=== PATIENT | female | born 1970 | race Caucasian/White ===

== ENCOUNTER 2018-05-27 17:40 | Emergency (ER) | payer BC ==
--- NOTE | 2018-05-27 17:52 | ED ---
Abdominal Pain HPI - General Chief Complaint: Abdominal Pain Stated Complaint: vomiting Time Seen by Provider: 05/27/18 17:51 Source: patient Mode of arrival: ambulatory Limitations: no limitations - History of Present Illness Initial Comments: 48yo female presenting today for cc of vomiting. Pt states that she had lynne lettuce Thursday as well as her daughter. Later that evening her daughter began experiencing vomiting and diarrhea. Pt states the following morning she began vomiting and has had multiple episodes daily since. Pt also admits to LUQ pain. Pt denies any alleviating factors, Pt denies any radiation of the pain Pt states she has not been able to tolerate very much PO intake because it "comes right back up". Pt denies hemetemesis, melena, hematachezia. In addition pt admits to decreased urine in comparison with her usual amount. Remainder of ROS (-), pt denies fever, chills, chest pain, dyspnea, dyspnea upon exertion, LE edema, back pain, flank pain, hematuria, dysuria, urgrency, frequency or vaginal discharge. Upon arrival pt appear well, no signs of acute distress. VS within normal limits. - Related Data Home Medications Medication Instructions Recorded Confirmed Ascorbic Acid [Vitamin C] 1,000 mg PO DAILY 05/27/18 05/28/18 Calcium Carbonate [Calcium] 600 mg PO DAILY 05/27/18 05/28/18 Ibuprofen [Motrin Ib] 400 mg PO Q6H PRN 05/27/18 05/28/18 Multivitamin,Therapeutic [Thera] 1 tab PO DAILY 05/27/18 05/28/18 Tumeric (Unknown) 1 tab PO DAILY 05/27/18 05/28/18 Previous Rx's Medication Instructions Recorded Ondansetron Odt [Zofran Odt] 4 mg PO Q8HR PRN 5 Days #15 tab 05/27/18 Allergies Allergy/AdvReac Type Severity Reaction Status Date / Time [place] And Derivatives Allergy Unknown Verified 05/28/18 10:43 [[place]] codeine Allergy Rapid Verified 05/28/18 10:43 Heart Rate Review of Systems ROS Statement: Those systems with pertinent positive or pertinent negative responses have been documented in the HPI. ROS Other: All systems not noted in ROS Statement are negative. Past Medical History Past Medical History: No Reported History History of Any Multi-Drug Resistant Organisms: None Reported Past Surgical History: Cholecystectomy Additional Past Surgical History / Comment(s): dnc Past Psychological History: No Psychological Hx Reported Smoking Status: Never smoker Past Alcohol Use History: Occasional Past Drug Use History: None Reported General Exam - General Exam Comments Initial Comments: General: The patient is awake and alert, in no distress, and does not appear acutely ill. Eye: Pupils are equal, round and reactive to light, extra-ocular movements are intact. No nystagmus. There is normal conjunctiva bilaterally. No signs of icterus. Ears, nose, mouth and throat: There are moist mucous membranes and no oral lesions. Neck: The neck is supple, there is no tenderness or JVD. Cardiovascular: There is a regular rate and rhythm. No murmur, rub or gallop is appreciated. Respiratory: Lungs are clear to auscultation, respirations are non-labored, breath sounds are equal. No wheezes, stridor, rales, or rhonchi. Gastrointestinal: No noted diaphoresis, jaundice, pallor, protecting postures or squirming. Symmetrical pigmentation of abdomen without signs of inflammation.. Umbilicus mildline, inverted without swelling. No dilated veins. Abdomen contour obese, no noted abdominal distention. No visible masses. No peristalsis, aortic pulsations, or ventral hernia. Bowel sounds audible in all 4 quadrants, unremarkable. Mild tenderness to light or deep palpation of the LUQ. Liver edge , not palpable. Spleen edge, right and left kidney not palpable. Superior bladder margin non-tender. Special Testing: Negative [place], [place], McBurney, Geovani. Iliopsoas. Negative Heel Jar test. No CVA tenderness. Digital rectal exam deferred. Negative heredia turners or cullens sign Musculoskeletal: Normal ROM, no tenderness. Strength 5/5. Sensation intact. Pulses equal bilaterally 2+. Neurological: A&O x 3. CN II-XII intact, There are no obvious motor or sensory deficits. Coordination appears grossly intact. Speech is normal. Skin: Skin is warm and dry and no rashes or lesions are noted. Psychiatric: Cooperative, appropriate mood & affect, normal judgment. Limitations: no limitations Course Vital Signs 05/27/18 05/27/18 05/27/18 17:42 19:57 20:34 Temperature 98.5 F 98.4 F Pulse Rate 70 65 Respiratory 18 17 Rate Blood Pressure 132/72 136/60 O2 Sat by Pulse 99 99 Oximetry Medical Decision Making - Medical Decision Making Well appearing 48yo female. VS within normal limits. (+) sick contacts. Laboratory findings revealed mildly elevated WBC. Appears mildly dehydrated with heme concentration and elevated BUN. Pt given IV fluids. Pt given zofran for nausea. No episdoes of vomiting during stay. Given complaints of upper abdominal pain, EKG and cardiac enzymes obtained, (-). Pt appears well, KUB (-) . Pt states she has has marked improvement of symptoms with zofran and fluids. Pt states main concern was dehydration. At this time given improvment of symptoms pt is stable for discharge with primary care f/u in net 24- 48 hours. Pt is agreeable with plan and discharge. Case discussed with Dr. King who agreed with impression and plan. Pt discharged in stable condition after discussing all return parameters at length and prescribing zofran ODT PRN as needed for nausea. Pt dneies questions upon discharge. Pt appeared well. - Lab Data Result diagrams: 05/27/18 18:05 05/27/18 18:05 Lab Results 05/27/18 05/27/18 05/27/18 Range/Units 18:05 18:05 18:05 WBC 14.1 H (3.8-10.6) k/uL RBC 5.31 (3.80-5.40) m/uL Hgb 15.5 (11.4-16.0) gm/dL Hct 46.3 H (34.0-46.0) % MCV 87.2 (80.0-100.0) fL MCH 29.3 (25.0-35.0) pg MCHC 33.5 (31.0-37.0) g/dL RDW 12.4 (11.5-15.5) % Plt Count 334 (150-450) k/uL Neutrophils % 79 % Lymphocytes % 16 % Monocytes % 4 % Eosinophils % 0 % Basophils % 0 % Neutrophils # 11.1 H (1.3-7.7) k/uL Lymphocytes # 2.3 (1.0-4.8) k/uL Monocytes # 0.5 (0-1.0) k/uL Eosinophils # 0.1 (0-0.7) k/uL Basophils # 0.0 (0-0.2) k/uL Sodium 140 (137-145) mmol/L Potassium 4.0 (3.5-5.1) mmol/L Chloride 108 H (98-107) mmol/L Carbon Dioxide 20 L (22-30) mmol/L Anion Gap 12 mmol/L BUN 20 H (7-17) mg/dL Creatinine 0.55 (0.52-1.04) mg/dL Est GFR (CKD-EPI)AfAm >90 (>60 ml/min/1.73 sqM) Est GFR (CKD-EPI)NonAf >90 (>60 ml/min/1.73 sqM) Glucose 121 H (74-99) mg/dL Calcium 9.9 (8.4-10.2) mg/dL Total Bilirubin 1.5 H (0.2-1.3) mg/dL AST 20 (14-36) U/L ALT 25 (9-52) U/L Alkaline Phosphatase 79 (38-126) U/L Total Creatine Kinase 47 (30-135) U/L CK-MB (CK-2) 0.8 (0.0-2.4) ng/mL CK-MB (CK-2) Rel Index 1.7 Troponin I <0.012 (0.000-0.034) ng/mL Total Protein 8.0 (6.3-8.2) g/dL Albumin 4.6 (3.5-5.0) g/dL Amylase 78 (30-110) U/L Lipase 110 (23-300) U/L - EKG Data -: EKG Interpreted by Me EKG Comments: A 12-lead EKG was performed and shows the following: Rate is 66, and rhythm is normal sinus. There are normal QRS complexes and normal R-wave progression. ST segments have no elevation or depression, and OR segments appear normal. No changes concerning for ACS. Disposition Clinical Impression: Acute vomiting, Abdominal pain Disposition: HOME SELF-CARE Condition: Good Instructions: Acute Nausea and Vomiting (ED), Abdominal Pain (ED) Additional Instructions: Please use medication as discussed. Please follow-up with family doctor in the next 2 days. Please return to emergency room if the symptoms increase or worsen or for any other concerns,as discussed including fever, bloody stool, worsening or persistent pain/symptoms. Prescriptions: Ondansetron Odt [Zofran Odt] 4 mg PO Q8HR PRN 5 Days #15 tab PRN Reason: Nausea And Vomiting Is patient prescribed a controlled substance at d/c from ED?: No Referrals: None,Stated [REFERRING] - 1-2 days [facility] [NON-STAFF] - 1-2 days Time of Disposition: 20:14
[2018-05-27 18:25] LABS: Basophils % (A) 0 %; Eosinophils # (A) 0.1 k/uL (0-0.7); Eosinophils % (A) 0 %; HCT 46.3 % (34.0-46.0); HGB 15.5 gm/dL (11.4-16.0); Lymphocytes # (A) 2.3 k/uL (1.0-4.8); Lymphocytes % (A) 16 %; MCH 29.3 pg (25.0-35.0); MCHC 33.5 g/dL (31.0-37.0); MCV 87.2 fL (80.0-100.0); Monocytes # (A) 0.5 k/uL (0-1.0); Monocytes % (A) 4 %; Neutrophils # (A) 11.1 k/uL (1.3-7.7); Neutrophils % (A) 79 %; Platelet Count 334 k/uL (150-450); RBC 5.31 m/uL (3.80-5.40); RDW 12.4 % (11.5-15.5); WBC 14.1 k/uL (3.8-10.6)
[2018-05-27 18:33] LABS: ALT 25 U/L (9-52); AST 20 U/L (14-36); Albumin 4.6 g/dL (3.5-5.0); Alkaline Phosphatase 79 U/L (38-126); Amylase 78 U/L (30-110); Anion Gap 12 mmol/L; Blood Urea Nitrogen 20 mg/dL (7-17); Calcium 9.9 mg/dL (8.4-10.2); Carbon Dioxide 20 mmol/L (22-30); Chloride 108 mmol/L (98-107); Glucose 121 mg/dL (74-99); Lipase 110 U/L (23-300); Sodium 140 mmol/L (137-145); Total Bilirubin 1.5 mg/dL (0.2-1.3)
--- NOTE | 2018-05-27 18:41 | XR ---
EXAMINATION TYPE: XR KUB DATE OF EXAM: 05/27/2018 COMPARISON: NONE HISTORY: Abdominal pain TECHNIQUE: 2 views upright FINDINGS: There is no sign of intestinal obstruction or pneumoperitoneum. There are clips from cholec ystectomy. There are a few fluid levels in the upper abdomen. Lung bases are clear. There are no path ologic calcifications over the kidneys. Fecal pattern is normal. IMPRESSION: There are a few small bowel air-fluid levels that could relate to minimal ileus. No free air.
[2018-05-27 18:45] LABS: Creatine Kinase 47 U/L (30-135)
[2018-05-27 18:56] LABS: Creatine Kinase MB 0.8 ng/mL (0.0-2.4); Troponin I <0.012 ng/mL (0.000-0.034)
[2018-05-27] MEDS ORDERED: SODIUM CHLORIDE 0.9% 1,000 ML IV ONE (19:01)
[2018-05-27] MEDS ORDERED: ONDANSETRON 4 MG/2 ML VIAL IVP STA (19:01)
[2018-05-27] MEDS ORDERED: KETOROLAC 30 MG/ML 1 ML VIAL IVP STA (19:21)
[2018-05-27 19:59] VITALS: BP 136/60; PULSE 65; RESP 17
[2018-05-27] MEDS ORDERED: ONDANSETRON 4 MG ODT STARTER PACK 2 TAB BTL PO STA (20:16)
[2018-05-27 20:35] VITALS: TEMP 98.4
== END 2018-05-27 20:36 | disposition home or self-care (01) ==
LOC: EC 17:40
DX: R10.12 Left upper quadrant pain (principal); R11.10 Vomiting, unspecified; Z79.899 Other long term (current) drug therapy; Z88.5 Allergy status to narcotic agent; Z91.018 Allergy to other foods; Z90.49 Acquired absence of other specified parts of digestive tract
CPT/HCPCS: 36415; 93005; 80053; 82150; 82550; 82553; 83690; 84484; 85025; 74018; 99284; 96374; 96375; 96361; J2405; J1885; S0119

== ENCOUNTER 2018-05-28 10:03 | Observation (INO) | payer BC ==
[2018-05-28] MEDS ORDERED: SODIUM CHLORIDE 0.9% 1,000 ML IV STA (10:34)
[2018-05-28] MEDS ORDERED: PANTOPRAZOLE 40 MG/10 ML VIAL IVP ONE (10:35)
--- NOTE | 2018-05-28 10:40 | ED ---
General Adult HPI - General Chief complaint: GI Bleed Stated complaint: VOMITING BLOOD Source: patient Mode of arrival: ambulatory Limitations: no limitations - History of Present Illness Initial comments: Dictation was produced using [employer] dictation software. please excuse any grammatical, word or spelling errors. Chief Complaint: 28-year-old female with past medical history of obesity and recent 90 pound weight loss presents with hematemesis. History of Present Illness: Patient is a 48-year-old female presents with chief complaint of hematemesis. She was seen here yesterday. Patient's symptoms started 4 days ago with nausea and vomiting. Patient also complains of epigastric/left upper quadrant abdominal pain. Patient is a frequent caffeine user. She does not use tobacco products. She drinks occasionally. Patient states that she was seen yesterday and was discharged with Zofran. She states that this morning she had 3 episodes of dark brown emesis. Patient states she vomited approximately the size of one can 43 times and with each emesis. Emesis was getting darker in appearance. Patient denies any history of upper GI bleed. She states she has not had a bowel movement in several days. The ROS documented in this emergency department record has been reviewed and confirmed by me. Those systems with pertinent positive or negative responses have been documented in the HPI. All other systems are other negative and/or noncontributory. - Related Data Home Medications Medication Instructions Recorded Confirmed Ascorbic Acid [Vitamin C] 1,000 mg PO DAILY 05/27/18 05/28/18 Calcium Carbonate [Calcium] 600 mg PO DAILY 05/27/18 05/28/18 Ibuprofen [Motrin Ib] 400 mg PO Q6H PRN 05/27/18 05/28/18 Multivitamin,Therapeutic [Thera] 1 tab PO DAILY 05/27/18 05/28/18 Tumeric (Unknown) 1 tab PO DAILY 05/27/18 05/28/18 Previous Rx's Medication Instructions Recorded Ondansetron Odt [Zofran Odt] 4 mg PO Q8HR PRN 5 Days #15 tab 05/27/18 Allergies Allergy/AdvReac Type Severity Reaction Status Date / Time [place] And Derivatives Allergy Unknown Verified 05/28/18 10:43 [[place]] codeine Allergy Rapid Verified 05/28/18 10:43 Heart Rate Review of Systems ROS Statement: Those systems with pertinent positive or pertinent negative responses have been documented in the HPI. ROS Other: All systems not noted in ROS Statement are negative. Past Medical History Past Medical History: No Reported History History of Any Multi-Drug Resistant Organisms: None Reported Past Surgical History: Cholecystectomy Additional Past Surgical History / Comment(s): dnc Past Psychological History: No Psychological Hx Reported Smoking Status: Never smoker Past Alcohol Use History: Occasional Past Drug Use History: None Reported General Exam - General Exam Comments Initial Comments: PHYSICAL EXAM: General Impression: Alert and oriented x3, not in acute distress HEENT: Normocephalic atraumatic, extra-ocular movements intact, pupils equal and reactive to light bilaterally, mucous membranes moist. Cardiovascular: Heart regular rate and rhythm, S1&S2 audible, no murmurs, rubs or gallops Chest: Lungs clear to auscultation bilaterally, no rhonchi, no wheeze, no rales Abdomen: Bowel sounds present, abdomen soft, non-tender, non-distended, no organomegaly Musculoskeletal: Pulses present and equal in all extremities, no peripheral edema Motor: Power 5/5 bilaterally, no focal deficits noted Neurological: CN II-XII grossly intact, no focal motor or sensory deficits noted Skin: Intact with no visualized rashes Psych: Normal affect and mood Limitations: no limitations Course Vital Signs 05/28/18 10:07 Temperature 98 F Pulse Rate 67 Respiratory 18 Rate Blood Pressure 153/96 O2 Sat by Pulse 100 Oximetry Medical Decision Making - Medical Decision Making ED course: 48-year-old female presents with chief complaint of dark brown emesis. Vital signs upon arrival are within acceptable limits. Clinical presentation consistent with upper GI bleed. There is strong suspicion of bleeding peptic ulcer versus gastritis. Patient is tolerating by mouth. Patient started on fluids. Chart and labs were reviewed from yesterday. Patient given Protonix. She is ordered scheduled Protonix and scheduled CBCs. We will plan to have patient admitted to the hospital for GI consultation and likely upper endoscopy. EKG interpretation: Ventricular rate 62, normal sinus rhythm, CT interval 120, QRS 84, QTC 434. No CT prolongation, no QTC prolongation, no ST or T-wave changes noted. . Overall, this EKG is unremarkable - Lab Data Result diagrams: 05/28/18 10:50 Lab Results 05/28/18 05/28/18 05/28/18 Range/Units 10:50 10:50 10:50 WBC 13.4 H (3.8-10.6) k/uL RBC 4.85 (3.80-5.40) m/uL Hgb 13.9 (11.4-16.0) gm/dL Hct 42.0 (34.0-46.0) % MCV 86.5 (80.0-100.0) fL MCH 28.7 (25.0-35.0) pg MCHC 33.2 (31.0-37.0) g/dL RDW 12.5 (11.5-15.5) % Plt Count 326 (150-450) k/uL PT 11.6 (9.0-12.0) sec INR 1.1 (<1.2) Magnesium 1.7 (1.6-2.3) mg/dL Blood Type Blood Type Confirm Blood Type Recheck Antibody Screen Spec Expiration Date 05/28/18 05/28/18 Range/Units 10:50 11:31 WBC (3.8-10.6) k/uL RBC (3.80-5.40) m/uL Hgb (11.4-16.0) gm/dL Hct (34.0-46.0) % MCV (80.0-100.0) fL MCH (25.0-35.0) pg MCHC (31.0-37.0) g/dL RDW (11.5-15.5) % Plt Count (150-450) k/uL PT (9.0-12.0) sec INR (<1.2) Magnesium (1.6-2.3) mg/dL Blood Type O Positive Blood Type Confirm O Positive Blood Type Recheck CABO Indicated Antibody Screen NEGATIVE Spec Expiration Date 05/31/2018 - 2334 Disposition Clinical Impression: Hematochezia Disposition: ADMITTED IP TO THIS HOSP Condition: Fair Is patient prescribed a controlled substance at d/c from ED?: No Referrals: Kerrie Anand MD [Primary Care Provider] - 1-2 days Decision Time: 12:51
[2018-05-28 11:09] LABS: HGB 13.9 gm/dL (11.4-16.0); MCH 28.7 pg (25.0-35.0); MCHC 33.2 g/dL (31.0-37.0); MCV 86.5 fL (80.0-100.0); Mean Platelet Volume 7.6; Platelet Count 326 k/uL (150-450); RBC 4.85 m/uL (3.80-5.40); RDW 12.5 % (11.5-15.5); WBC 13.4 k/uL (3.8-10.6)
--- NOTE | 2018-05-28 11:22 | XR ---
EXAMINATION TYPE: XR chest 1V DATE OF EXAM: 05/28/2018 CLINICAL HISTORY: Pain TECHNIQUE: Single frontal view of the chest is obtained. COMPARISON: None FINDINGS: There is no focal air space opacity, pleural effusion, or pneumothorax seen. The cardiac silhouette size is within normal limits. The osseous structures are intact. IMPRESSION: No acute process.
[2018-05-28 11:46] LABS: INR 1.1 (<1.2); Prothrombin Time 11.6 sec (9.0-12.0)
[2018-05-28] MEDS ORDERED: NALOXONE 0.4 MG/ML 1 ML VIAL IV PRN (12:48)
[2018-05-28] MEDS ORDERED: ACETAMINOPHEN TAB 325 MG TAB PO PRN (14:29)
[2018-05-28] MEDS: ONDANSETRON 4 MG/2 ML VIAL IVP PRN (15:41)
[2018-05-28] MEDS ORDERED: KETOROLAC 30 MG/ML 1 ML VIAL IVP SCH (18:00)
[2018-05-28] MEDS: PANTOPRAZOLE 40 MG/10 ML VIAL IVP SCH (22:01)
[2018-05-28] MEDS: SODIUM CHLORIDE 0.9% 1,000 ML IV SCH ×2 (22:01→23:40)
[2018-05-28] MEDS: KETOROLAC 30 MG/ML 1 ML VIAL IVP PRN (23:43)
[2018-05-29] MEDS: ONDANSETRON 4 MG/2 ML VIAL IVP PRN ×4 (06:47→23:56)
[2018-05-29] MEDS: KETOROLAC 30 MG/ML 1 ML VIAL IVP PRN ×3 (07:55→19:55)
[2018-05-29] MEDS: PANTOPRAZOLE 40 MG/10 ML VIAL IVP SCH ×2 (07:56→21:13)
[2018-05-29 08:59] VITALS: BMI 43.9
[2018-05-29] MEDS: SODIUM CHLORIDE 0.9% 1,000 ML IV SCH ×2 (09:54→20:48)
--- NOTE | 2018-05-29 12:50 | PN ---
PROGRESS NOTE DATE OF SERVICE: 05/29/2018 CHIEF COMPLAINT: Epigastric pain and hematemesis. HISTORY OF PRESENT ILLNESS: This lady is feeling a little bit better, but she is still having the epigastric pain. She is not vomiting. She is going to be scoped tomorrow. PHYSICAL EXAM: She is slightly tender over the epigastrium. Color is good. Chest is clear. Cardiac exam is normal. IMPRESSION: 1. Gastritis. 2. Hematemesis. PLAN: A scope tomorrow. MMODL / IJN: [id number] /
--- NOTE | 2018-05-29 13:33 | HP ---
HISTORY AND PHYSICAL CHIEF COMPLAINT: Abdominal pain and shortness of breath. HISTORY OF PRESENT ILLNESS: This is the first admission for this 48-year-old white female. She apparently ate a salad somewhere and shortly thereafter began to have epigastric pain, nausea and vomiting. This lasted about 4 days. She did not have diarrhea. The pain was quite significant and after a while she started throwing up coffee-grounds emesis. There was felt that this could represent upper GI bleeding. She is healthy otherwise. She has never had ulcer, gastritis, etc. She has had no fever, chills, diarrhea, melena, hematochezia, etc. The only medications she is on, she is on vitamin C, calcium, Motrin 400 q.i.d. p.r.n. In the emergency room, laboratory studies unremarkable. White count 75669, hemoglobin 13.9. REVIEW OF SYSTEMS: She has had no neurologic problems, history of lung disease, cough, hemoptysis, shortness of breath, heart disease, murmurs, rheumatic fever, hypertension, orthopnea, PND, history of GI disease, renal failure, hematuria, frequency, urgency, vaginal discharge or bleeding, arthralgias, diabetes, etc. Past medical history, family history, personal and social histories are unremarkable otherwise. ALLERGIES: SHE IS ALLERGIC TO CODEINE. PAST SURGICAL HISTORY: Surgically she has had 2 D and C's, and cholecystectomy. She does not take any medicines other than those already mentioned. PHYSICAL EXAMINATION: VITAL SIGNS: Temperature 98.5, pulse 64, blood pressure 130/76. GENERAL: She appeared to be slightly overweight in no acute distress. SKIN: Color is normal. Skin is warm, dry. Lymph nodes not enlarged. HEENT: Head, ears, eyes, nose, mouth, and throat were normal. Neck veins not distended. Thyroid is not enlarged. CHEST: Chest is clear. CARDIOVASCULAR: Cardiac exam demonstrated normal sinus rhythm. No murmurs or extra sounds. She is a little bit tender up over the epigastrium, but there are no masses or visceromegaly. Bowel sounds present. EXTREMITIES: Normal. NEUROLOGICAL: Neurologically she is intact. IMPRESSION: Epigastric pain with intractable nausea and vomiting hematemesis. PLAN: 1. Bed rest. 2. IV fluids. 3. Proton pump inhibitor. 4. Consult with Gastroenterology. MMODL / IJN: [id number] /
--- NOTE | 2018-05-29 13:47 | CONS ---
CONSULTATION DATE OF DICTATION: May 29, 2018. REQUESTING PHYSICIAN: Dr. Peralta. REASON FOR CONSULTATION: Abdominal pain, nausea, vomiting, and coffee-grounds emesis. HISTORY OF PRESENT ILLNESS: The patient is a 48-year-old pleasant white female, who was admitted to the hospital with acute onset of epigastric pain associated with nausea, vomiting for the last 4 days duration. She ate a salad on Thursday and after she went home she started having severe epigastric discomfort associated with nausea, vomiting. She threw up at least 5 times, came in the emergency room. She was given Zofran and was discharged home. The next morning she continued to have persistent abdominal pain with intermittent nausea, vomiting, and yesterday morning had 3 episodes of coffee-grounds emesis, became concerned, came to the emergency room and subsequently admitted to the hospital for further evaluation. Since being in the hospital, did not have any further episodes of bleeding. She still has epigastric discomfort, currently n.p.o. She never had these symptoms in the past. No history of peptic ulcer disease. PAST MEDICAL HISTORY: Unremarkable. MEDICATIONS AT HOME: Motrin p.r.n., multivitamin, vitamin C, and Zofran. ALLERGIES: CODEINE. SOCIAL HISTORY: No smoking. No alcohol use. PAST SURGICAL HISTORY: Gallbladder surgery. REVIEW OF SYSTEMS: CARDIOPULMONARY: No chest pain, shortness of breath. GENITOURINARY: No dysuria or hematuria. MUSCULOSKELETAL: Unremarkable. SKIN unremarkable. ENDOCRINE unremarkable. PSYCHIATRIC unremarkable. NEUROLOGY unremarkable. ENT/VISION unremarkable. CONSTITUTIONAL: No recent weight loss. No fever, chills, night sweats. PHYSICAL EXAMINATION: She appears comfortable in no apparent distress. Vital signs are stable. Blood pressure 130/76, pulse rate 64, temperature 97. HEENT examination unremarkable. Conjunctivae pink. Sclerae anicteric. Oral cavity no lesions. NECK: No JVD or lymph node enlargement. Chest was clear to auscultation. HEART: Regular rate and rhythm. ABDOMEN: Soft. There is mild tenderness in the epigastric area. Bowel sounds are positive. EXTREMITIES: No pedal edema. SKIN: No rashes. NEUROLOGIC: Alert and oriented x3. No focal deficits. LABORATORY DATA: The following are the labs done at the time of admission to the hospital: CBC: Hemoglobin was 13.9, WBC 13.4, and platelets are normal. PT/INR is within normal limits. IMPRESSION: This is a lady who presented to the hospital with severe epigastric pain for the last 5 days duration associated with nausea, vomiting, who came into the emergency room, at the onset of symptoms was given Zofran and discharged home. She continued to have persistent symptoms with coffee-ground emesis that started yesterday. Hemoglobin however remained stable at 13.9 g/dL. Most likely we are dealing with a Laureen-Sawyer tear or antral erosive gastritis. Doubt peptic ulcer disease. RECOMMENDATIONS: 1. Continue with IV PPI. 2. Start her on a clear liquid diet and advance as tolerated. 3. Proceed with an upper endoscopy tomorrow. Discussed with the patient, risks, benefits and complications and she is agreeable to it. Thank you for this consultation. MMJENNIFERL / IJN: [id number] /
[2018-05-30] MEDS: KETOROLAC 30 MG/ML 1 ML VIAL IVP PRN ×4 (02:02→18:11)
[2018-05-30] MEDS: SODIUM CHLORIDE 0.9% 1,000 ML IV SCH ×3 (05:02→18:06)
[2018-05-30] MEDS: PANTOPRAZOLE 40 MG/10 ML VIAL IVP SCH (07:29)
[2018-05-30] MEDS: ONDANSETRON 4 MG/2 ML VIAL IVP PRN ×3 (07:30→18:10)
[2018-05-30] MEDS ORDERED: PROPOFOL 10 MG/ML 20 ML VIAL IV ONE (08:28)
[2018-05-30] MEDS ORDERED: LIDOCAINE 1% INJ 10MG/ML (20 ML MDV) ONE (08:28)
[2018-05-30] MEDS ORDERED: IV FLUID CONTINUATION 100 ML IV ONE (08:30)
--- NOTE | 2018-05-30 08:39 | P.PCN ---
Date of Procedure: 05/30/18 Procedure(s) Performed: BRIEF HISTORY: Patient is a 48-year-old, pleasant, white female, admitted to hospital with severe epigastric pain is with nausea vomiting and coffee-ground emesis for the last 5 days duration. Initially it was bilious emesis but subsequently found to coffee-ground a day prior to admission to hospital. She is on IV Protonix and Zofran. Remain symptomatic and hence he scheduled for an upper endoscopy to evaluate further. PROCEDURE PERFORMED: Esophagogastroduodenoscopy with biopsy. PREOPERATIVE DIAGNOSIS: Epigastric pain/coffee-ground emesis. IV sedation per anesthesia. PROCEDURE: After informed consent was obtained, the patient was brought into the endoscopy unit. IV sedation was administered by Anesthesia under continuous monitoring. Initially the Olympus GIF-140 video endoscope was inserted into the mouth. Esophagus intubated without any difficulty. It was gradually advanced into the stomach and duodenum and carefully examined. The bulb and the second part of the duodenum appeared normal. The scope at this time was withdrawn to the stomach, adequately insufflated with air, and upon careful examination, mucosa of the antrum, body, had diffuse gastritis and biopsies were done from this area. The cardia and the fundus appeared normal. The scope was then withdrawn into the esophagus. The GE junction was located at 39 cm from the incisors. The esophagus appeared normal. There were no erosions or ulcerations seen and the patient tolerated the procedure well. IMPRESSION: 1. Mild diffuse gastritis but no evidence of peptic ulcer disease. 2. Small hiatal hernia. RECOMMENDATIONS: The findings of this examination were discussed with the patient. She was advised to follow with the biopsy results. In the meantime he 'll continue with IV Protonix as well as antiemetics and advance diet as tolerated.
--- NOTE | 2018-05-30 13:27 | PN ---
PROGRESS NOTE CHIEF COMPLAINT: Hematemesis. HISTORY OF PRESENT ILLNESS: This lady is doing well. She was scoped this morning and she was found to have a gastritis and a hiatal hernia with no ulcer. PHYSICAL EXAM: Chest is clear. Cardiac exam is normal. Abdomen is soft, nontender. IMPRESSION: 1. Intractable nausea and vomiting. 2. Gastritis and hiatal hernia. PLAN: She will probably stay the rest of the day and go home tomorrow. MMODL / IJN: [id number] /
[2018-05-30] MEDS ORDERED: MAGNESIUM CITRATE 296 ML BOTTLE PO ONE (14:36)
[2018-05-30] MEDS: PANTOPRAZOLE 40 MG TABLET PO SCH (17:20)
[2018-05-31] MEDS: PANTOPRAZOLE 40 MG TABLET PO SCH ×2 (07:51→17:33)
[2018-05-31] MEDS: KETOROLAC 30 MG/ML 1 ML VIAL IVP PRN ×2 (07:51)
[2018-05-31] MEDS: ONDANSETRON 4 MG/2 ML VIAL IVP PRN ×2 (07:51)
[2018-05-31] MEDS ORDERED: BISACODYL 10 MG SUPP RECTAL PRN (10:07)
[2018-05-31] MEDS ORDERED: NA PHOS,M-B/NA PHOS,DI-BA 133 ML ENEMA RECTAL ONE (10:15)
--- NOTE | 2018-05-31 11:52 | PN ---
PROGRESS NOTE DATE OF SERVICE: May 31, 2018 Patient is a 48-year-old pleasant white female admitted to the hospital with severe onset of nausea, vomiting, and coffee-grounds emesis of 2 days duration. She underwent an upper endoscopy yesterday that showed a small hiatal hernia and mild gastritis. She has been on Protonix 40 mg twice daily as well as Zofran. Yesterday after endoscopy, she had some regular diet and she had 2 episodes of emesis. She is complaining of abdominal distention and severe constipation. She had no bowel movements for the last 5 days. No fever, chills, or night sweats. This morning, she had regular diet, tolerated well. PHYSICAL EXAMINATION: Appears comfortable no apparent distress. VITAL SIGNS: Stable. Blood pressure 156- 84, pulse rate 66, temperature 98.8. HEENT examination unremarkable. Conjunctivae pink. Sclerae anicteric. Oral cavity no lesions. Neck no jugular venous distention or lymph node enlargement. Chest was clear to auscultation. HEART: Regular rate and rhythm. ABDOMEN: Soft. There was slight abdominal distention noted. EXTREMITIES: No pedal edema. Skin no rashes. NEUROLOGIC: Alert and oriented x3. No focal deficits. LABS: No labs available from today. IMPRESSION: 1. Acute onset of nausea, vomiting, and coffee-grounds emesis, status post EGD yesterday showed mild gastritis and small hiatal hernia. 2. Abdominal distention/constipation. RECOMMENDATIONS: 1. Advance diet as tolerated. 2. We will give her a Fleet's enema and Dulcolax suppository if no results to alleviate the constipation. 3. If her symptoms improve, she can be discharged home today or tomorrow. Thank you for this consultation. MMODL / IJN: [id number] /
[2018-05-31 15:46] VITALS: BP 148/82; PULSE 77; RESP 18; TEMP 99.1
--- NOTE | 2018-06-01 08:06 | DS ---
DISCHARGE SUMMARY CHIEF COMPLAINT: Nausea, vomiting, hematemesis. HISTORY OF PRESENT ILLNESS AND PHYSICAL EXAM: The details of this lady's history and physical can be found in the initial workup. LABORATORY STUDIES: While she was in a hospital she had laboratory studies, details which can be found laboratory section of her chart. COURSE IN HOSPITAL: After admission she was placed on bedrest, started on intravenous fluids and seen by Gastroenterology. She was taken to the operating room where she was found to have gastritis, hiatal hernia, esophagitis, but no definite ulcer. Postoperatively, she had some mild discomfort, but no further hematemesis. PHYSICAL EXAMINATION: Chest is clear. There are no further difficulty. She will go home on light activity and a bland soft diet and be seen in the office in 4 or 5 days. FINAL DIAGNOSES: 1. Upper gastrointestinal hemorrhage. 2. Intractable nausea and vomiting. 3. Gastritis. 4. Hiatal hernia. 5. Esophagitis. 6. Constipation. OPERATIONS: Endoscopy. CONSULTATIONS: Gastroenterology. She is improved. MMODL / IJN: [id number] /
== END 2018-05-31 18:22 | disposition home or self-care (01) ==
LOC: EC 10:03 → 4SSUR 12:48
PROVIDERS: ADMIT Family Medicine; ATTEND Family Medicine
DX: K29.51 Unspecified chronic gastritis with bleeding (principal); K44.9 Diaphragmatic hernia without obstruction or gangrene; K20.9 Esophagitis, unspecified; K59.00 Constipation, unspecified; Z88.5 Allergy status to narcotic agent; Z90.49 Acquired absence of other specified parts of digestive tract
CPT/HCPCS: 96376 ×3; 96375; 96361; 96374; 99285; 36415; 93005; 81025; 86900; 86901; 88305; 83735; 85027; 85610; 86850; 88342; 71045; 43239; G0378 ×4; J2405 ×4; J2001; J1885 ×4; J2704; C9113 ×3

== ENCOUNTER 2018-06-03 00:45 | Inpatient (IN) | payer BC ==
[2018-06-03] MEDS ORDERED: SODIUM CHLORIDE 0.9% 1,000 ML IV STA ×2 (02:10→06:09)
[2018-06-03 02:38] LABS: Basophils % (A) 0 %; Eosinophils # (A) 0.1 k/uL (0-0.7); Eosinophils % (A) 1 %; HCT 42.3 % (34.0-46.0); HGB 14.3 gm/dL (11.4-16.0); Lymphocytes # (A) 1.9 k/uL (1.0-4.8); Lymphocytes % (A) 16 %; MCH 29.3 pg (25.0-35.0); MCHC 33.7 g/dL (31.0-37.0); Mean Platelet Volume 7.9; Monocytes # (A) 1.1 k/uL (0-1.0); Monocytes % (A) 10 %; Neutrophils # (A) 8.4 k/uL (1.3-7.7); Neutrophils % (A) 71 %; Platelet Count 312 k/uL (150-450); RBC 4.87 m/uL (3.80-5.40); RDW 12.2 % (11.5-15.5); WBC 11.7 k/uL (3.8-10.6)
--- NOTE | 2018-06-03 02:47 | XR ---
EXAMINATION TYPE: XR KUB DATE OF EXAM: 06/03/2018 COMPARISON: 05/27/2018 HISTORY: Abdominal pain TECHNIQUE: 2 views upright FINDINGS: There are multiple dilated air and fluid-filled loops of small bowel in the midabdomen. Thi s appears increased compared to last exam. There is no sign of free air. Lung bases are clear. There is very little large bowel gas. IMPRESSION: Dilated small bowel consistent with high-grade mechanical small bowel obstruction. This i s a significant change compared to last exam.
[2018-06-03 02:49] LABS: Albumin 3.9 g/dL (3.5-5.0); Amylase 75 U/L (30-110); Anion Gap 17 mmol/L; Blood Urea Nitrogen 18 mg/dL (7-17); Calcium 9.3 mg/dL (8.4-10.2); Carbon Dioxide 26 mmol/L (22-30); Chloride 94 mmol/L (98-107); Glucose 116 mg/dL (74-99); Lipase 305 U/L (23-300); Sodium 137 mmol/L (137-145); Total Bilirubin 1.7 mg/dL (0.2-1.3); Total Protein 6.9 g/dL (6.3-8.2)
[2018-06-03] MEDS ORDERED: ONDANSETRON 4 MG/2 ML VIAL IVP STA (02:49)
[2018-06-03 03:09] LABS: Potassium 3.7 mmol/L (3.5-5.1)
[2018-06-03 03:10] LABS: ALT 52 U/L (9-52); AST 37 U/L (14-36); Alkaline Phosphatase 88 U/L (38-126)
[2018-06-03] MEDS ORDERED: MAG HYDROX/AL HYDROX/SIMETH 30 ML, HYOSCYAMINE ELIXIR 10 ML, CIMETIDINE HCL 300 MG, LID... PO STA ×4 (03:14)
--- NOTE | 2018-06-03 03:16 | ED ---
Nausea/Vomiting/Diarrhea HPI - General Chief complaint: Nausea/Vomiting/Diarrhea Stated complaint: vomiting, dizziness Time Seen by Provider: 06/03/18 02:57 Source: patient Mode of arrival: wheelchair Limitations: no limitations - History of Present Illness MD complaint: nausea, vomiting Onset/Timin -: days(s) Description of Vomiting: food contents, watery Associated Abdominal Pain: No Radiation: none Quality: cramping Improves with: none Worsens with: none - Related Data Home Medications Medication Instructions Recorded Confirmed Calcium Carbonate [Calcium] 600 mg PO DAILY 05/27/18 05/28/18 Multivitamin,Therapeutic [Thera] 1 tab PO DAILY 05/27/18 05/28/18 Tumeric (Unknown) 1 tab PO DAILY 05/27/18 05/28/18 Previous Rx's Medication Instructions Recorded Ondansetron Odt [Zofran ODT] 4 mg PO Q8HR PRN 5 Days #15 tab 05/27/18 Pantoprazole [Protonix] 40 mg PO AC-BID #60 tablet. 05/31/18 Allergies Allergy/AdvReac Type Severity Reaction Status Date / Time [place] And Derivatives Allergy Unknown Verified 05/28/18 10:43 [[place]] codeine Allergy Rapid Verified 05/28/18 10:43 Heart Rate Review of Systems ROS Statement: Those systems with pertinent positive or pertinent negative responses have been documented in the HPI. ROS Other: All systems not noted in ROS Statement are negative. Constitutional: Reports: weakness (Generalized). Denies: fever, chills Respiratory: Denies: cough, dyspnea Cardiovascular: Denies: chest pain, palpitations Gastrointestinal: Reports: abdominal pain, nausea, vomiting, constipation. Denies: diarrhea, melena, hematochezia Genitourinary: Denies: dysuria, hematuria Musculoskeletal: Denies: back pain Skin: Denies: rash Neurological: Denies: headache Past Medical History Past Medical History: No Reported History Additional Past Medical History / Comment(s): Migraines and joint pain, 90# intentional wt loss since August 2017. History of Any Multi-Drug Resistant Organisms: None Reported Past Surgical History: Section, Cholecystectomy Additional Past Surgical History / Comment(s): D&C Past Anesthesia/Blood Transfusion Reactions: Motion Sickness Additional Past Anesthesia/Blood Transfusion Reaction / Comment(s): Pt states she has been told she is "difficult to bring back out of it". Past Psychological History: No Psychological Hx Reported Smoking Status: Former smoker - Past Family History Father Family Medical History: Congestive Heart Failure (CHF) Additional Family Medical History / Comment(s): Father of CHF at the age of 56yrs. Mother Family Medical History: Cancer Additional Family Medical History / Comment(s): Mother of mutation cancer at the age of 40yrs. General Exam Limitations: no limitations Course Vital Signs 06/03/18 01:00 Temperature 97.8 F Pulse Rate 78 Respiratory 18 Rate Blood Pressure 136/91 O2 Sat by Pulse 97 Oximetry Medical Decision Making - Lab Data Result diagrams: 06/03/18 01:39 06/03/18 01:39 Lab Results 06/03/18 06/03/18 Range/Units 01:39 01:39 WBC 11.7 H (3.8-10.6) k/uL RBC 4.87 (3.80-5.40) m/uL Hgb 14.3 (11.4-16.0) gm/dL Hct 42.3 (34.0-46.0) % MCV 87.0 (80.0-100.0) fL MCH 29.3 (25.0-35.0) pg MCHC 33.7 (31.0-37.0) g/dL RDW 12.2 (11.5-15.5) % Plt Count 312 (150-450) k/uL Neutrophils % 71 % Lymphocytes % 16 % Monocytes % 10 % Eosinophils % 1 % Basophils % 0 % Neutrophils # 8.4 H (1.3-7.7) k/uL Lymphocytes # 1.9 (1.0-4.8) k/uL Monocytes # 1.1 H (0-1.0) k/uL Eosinophils # 0.1 (0-0.7) k/uL Basophils # 0.0 (0-0.2) k/uL Sodium 137 (137-145) mmol/L Potassium 3.7 (3.5-5.1) mmol/L Chloride 94 L (98-107) mmol/L Carbon Dioxide 26 (22-30) mmol/L Anion Gap 17 mmol/L BUN 18 H (7-17) mg/dL Creatinine 0.49 L (0.52-1.04) mg/dL Est GFR (CKD-EPI)AfAm >90 (>60 ml/min/1.73 sqM) Est GFR (CKD-EPI)NonAf >90 (>60 ml/min/1.73 sqM) Glucose 116 H (74-99) mg/dL Calcium 9.3 (8.4-10.2) mg/dL Total Bilirubin 1.7 H (0.2-1.3) mg/dL AST 37 H (14-36) U/L ALT 52 (9-52) U/L Alkaline Phosphatase 88 (38-126) U/L Total Protein 6.9 (6.3-8.2) g/dL Albumin 3.9 (3.5-5.0) g/dL Amylase 75 (30-110) U/L Lipase 305 H (23-300) U/L Disposition Clinical Impression: Abdominal pain, Small bowel obstruction Disposition: ADMITTED IP TO THIS HOSP Is patient prescribed a controlled substance at d/c from ED?: No Referrals: None,Stated [Primary Care Provider] - 1-2 days
[2018-06-03] MEDS ORDERED: MAG HYDROX/AL HYDROX/SIMETH 30 ML CUP PO PRN (06:08)
[2018-06-03] MEDS ORDERED: NALOXONE 0.4 MG/ML 1 ML VIAL IV PRN (06:08)
[2018-06-03] MEDS: ONDANSETRON 4 MG/2 ML VIAL IVP PRN ×2 (08:39→16:24)
[2018-06-03] MEDS: MORPHINE SULFATE 4 MG/ML SYRINGE IV PRN ×4 (08:40→23:22)
[2018-06-03] MEDS: PANTOPRAZOLE 40 MG TABLET PO SCH ×2 (09:12→17:51)
--- NOTE | 2018-06-03 09:32 | P.CONS ---
History of Present Illness - History of Present Illness This is a pleasant 48 years old female with past medical history of migraine. She was recently discharged from hospital for nausea/vomiting and coffee-ground emesis of 2 days' duration. She had EGD showing small helical hernias and mild gastritis. Also that time she complained from constipation and abdominal distention and she was treated with laxatives. Patient this time presents with recurrent nausea and vomiting 10-30 times per day for the last week associated with abdominal distention and periumbilical discomfort and pain. Also she complains from constipation for one week. In the emergency room her abdominal x-ray showing dilated small bowel consistent with high-grade mechanical small bowel obstruction. On admission her Vitas looks stable. Mild leukocytosis of 16.4, down to 11.7 K. Creatinine 0.4 and electrolytes within normal limits. Total bilirubin is mildly elevated at 1.7 as well as AST 37, however LT a note contrast is within normal limits. Lipase 305. In the emergency room patient of Zofran and IV fluids, she was started on pain management morphine.. I started the patient on D5 normal saline at 75 mL/h Patient states that currently she is menstruating. Review of Systems CONSTITUTIONAL: No fever, no malaise, no fatigue. HEENT: No recent visual problems or hearing problems. Denied any sore throat. CARDIOVASCULAR: No orthopnea, PND, no palpitations, no syncope. PULMONARY: No shortness of breath, no cough, no hemoptysis. GASTROINTESTINAL: No diarrhea, no nausea, no vomiting, no abdominal pain. Normoactive bowel sounds. NEUROLOGICAL: No headaches, no weakness, no numbness. HEMATOLOGICAL: Denies any bleeding or petechiae. GENITOURINARY: Denies any burning micturition, frequency, or urgency. MUSCULOSKELETAL/RHEUMATOLOGICAL: Denies any joint pain, swelling, or any muscle pain. ENDOCRINE: Denies any polyuria or polydipsia. Past Medical History Past Medical History: No Reported History Additional Past Medical History / Comment(s): Migraines and joint pain, 90# intentional wt loss since August 2017. History of Any Multi-Drug Resistant Organisms: None Reported Past Surgical History: Section, Cholecystectomy Additional Past Surgical History / Comment(s): D&C Past Anesthesia/Blood Transfusion Reactions: Motion Sickness Additional Past Anesthesia/Blood Transfusion Reaction / Comm: Pt states she has been told she is "difficult to bring back out of it". Past Psychological History: No Psychological Hx Reported Smoking Status: Former smoker - Past Family History Father Family Medical History: Congestive Heart Failure (CHF) Additional Family Medical History / Comment(s): Father of CHF at the age of 56yrs. Mother Family Medical History: Cancer Additional Family Medical History / Comment(s): Mother of mutation cancer at the age of 40yrs. Medications and Allergies Home Medications Medication Instructions Recorded Confirmed Type Calcium Carbonate [Calcium] 600 mg PO DAILY 05/27/18 06/03/18 History Multivitamin,Therapeutic [Thera] 1 tab PO DAILY 05/27/18 06/03/18 History Tumeric (Unknown) 1 tab PO DAILY 05/27/18 06/03/18 History Ascorbic Acid [Vitamin C] 1,000 mg PO DAILY 06/03/18 06/03/18 History Cholecalciferol [Vitamin D3] 1,000 unit PO DAILY 06/03/18 06/03/18 History Fexofenadine HCl [[place]ania Allergy] 180 mg PO DAILY 06/03/18 06/03/18 History Ibuprofen [Motrin Ib] 400 mg PO Q6H PRN 06/03/18 06/03/18 History Allergies Allergy/AdvReac Type Severity Reaction Status Date / Time [place] And Derivatives Allergy Unknown Verified 06/03/18 08:43 [[place]] codeine Allergy Rapid Verified 06/03/18 08:43 Heart Rate Physical Exam Vitals: Vital Signs Temp Pulse Pulse Resp BP BP Pulse Ox 06/03/18 07:20 97 F L 83 17 133/65 92 L 06/03/18 06:42 99.1 F 06/03/18 06:21 95 16 123/52 96 06/03/18 01:00 97.8 F 78 18 136/91 97 Intake and Output 06/02/18 06/03/18 06/03/18 22:59 06:59 14:59 Other: Weight 108.862 kg GENERAL: The patient is alert and oriented x3, not in any acute distress. Well developed, well nourished. HEENT: Pupils are round and equally reacting to light. EOMI. No scleral icterus. No conjunctival pallor. Normocephalic, atraumatic. No pharyngeal erythema. No thyromegaly. CARDIOVASCULAR: S1 and S2 present. No murmurs, rubs, or gallops. PULMONARY: Chest is clear to auscultation, no wheezing or crackles. -ABDOMEN: Soft, distended, periumbilical tenderness with no rebound tenderness, normoactive bowel sounds. No palpable organomegaly. MUSCULOSKELETAL: No joint swelling or deformity. EXTREMITIES: No cyanosis, clubbing, or pedal edema. NEUROLOGICAL: Gross neurological examination did not reveal any focal deficits. SKIN: No rashes. Results CBC & Chem 7: 06/03/18 01:39 06/03/18 01:39 Labs: Abnormal Lab Results - Last 24 Hours (Table) 06/03/18 06/03/18 Range/Units 01:39 01:39 WBC 11.7 H (3.8-10.6) k/uL Neutrophils # 8.4 H (1.3-7.7) k/uL Monocytes # 1.1 H (0-1.0) k/uL Chloride 94 L (98-107) mmol/L BUN 18 H (7-17) mg/dL Creatinine 0.49 L (0.52-1.04) mg/dL Glucose 116 H (74-99) mg/dL Total Bilirubin 1.7 H (0.2-1.3) mg/dL AST 37 H (14-36) U/L Lipase 305 H (23-300) U/L Assessment and Plan Assessment: Small bowel obstruction Recent history of abdominal distention and constipation. Recent EGD: Mild hiatal hernia and mild gastritis History of migraine Mild leukocytosis, mostly reactive and is improving Plan: This is a pleasant 48 years old female who presents with SBO. Continue with IV fluids, nothing by mouth and pain management. Further recommendations as per the primary surgical team Labs and medication were reviewed.. Continue same treatment. Continue with symptomatic treatment. Resume home medication. Monitor lytes and vitals. DVT and GI prophylaxis. Further recommendations of the clinical course of the patient DVT prophylaxis: Subcutaneous heparin GI Prophylaxis: Pepcid Prognosis is guarded Thank you for consulting us, please feel free to contact us for any further concerns, clarification or questions
[2018-06-03] MEDS: DEXTROSE 5%-0.9% NACL 1,000 ML IV SCH ×2 (10:43→22:12)
[2018-06-03 11:58] VITALS: BMI 43.9
[2018-06-03 14:09] LABS: Appearance,Urine Clear (Clear); Bilirubin,Urine 1+ (Negative); Blood,Urine Trace (Negative); Color,Urine Yellow; Glucose,Urine (UA) Negative (Negative); Ketones,Urine 3+ (Negative); Leukocyte Esterase,Urine Negative (Negative); Mucus,Urine Rare /hpf; Nitrite,Urine Negative (Negative); PH, Urine 6.5 (5.0-8.0); Protein,Urine Trace (Negative); RBC,Urine 1 /hpf (0-5); Specific Gravity,Urine 1.021 (1.001-1.035); Squamous Epithelial Cell,Urine <1 /hpf (0-4)
--- NOTE | 2018-06-03 19:42 | P.GSHP ---
History of Present Illness H&P Date: 06/03/18 Chief Complaint: Bowel obstruction Patient hospitalized with a nine-day history of intermittent vomiting and nausea. Some upper abdominal discomfort as well. Patient was seen in the ER last week and discharged. He was then admitted over the weekend and underwent upper endoscopy by gastroenterology. Gastritis and a small hiatal hernia was seen. Patient returns to the hospital today with persistent vomiting. Abdominal x-rays suggest the presence of a small bowel obstruction. Apparently no CAT scan was obtained on any of these visits. Patient is had decreased bowel function. No rectal bleeding or melena. No previous colonoscopy. No history of similar events. Surgical history includes laparoscopic cholecystectomy and . Patient has mild leukocytosis. Kidney function appears normal. Mild elevation of liver enzymes. Lipase slightly elevated. - Review of Systems Comment: The patient denies any acute changes in vision or hearing, no dysphagia or odynophagia, no chest pain or shortness of breath, no dysuria or hematuria, no headache, no runny nose, no rectal bleeding or melena, no unexplained weight loss Past Medical History Past Medical History: No Reported History Additional Past Medical History / Comment(s): Migraines and joint pain, 90# intentional wt loss since August 2017. History of Any Multi-Drug Resistant Organisms: None Reported Past Surgical History: Section, Cholecystectomy Additional Past Surgical History / Comment(s): D&C Past Anesthesia/Blood Transfusion Reactions: Motion Sickness Additional Past Anesthesia/Blood Transfusion Reaction / Comment(s): Pt states she has been told she is "difficult to bring back out of it". Past Psychological History: No Psychological Hx Reported Smoking Status: Former smoker - Past Family History Father Family Medical History: Congestive Heart Failure (CHF) Additional Family Medical History / Comment(s): Father of CHF at the age of 56yrs. Mother Family Medical History: Cancer Additional Family Medical History / Comment(s): Mother of mutation cancer at the age of 40yrs. Medications and Allergies Home Medications Medication Instructions Recorded Confirmed Type Calcium Carbonate [Calcium] 600 mg PO DAILY 05/27/18 06/03/18 History Multivitamin,Therapeutic [Thera] 1 tab PO DAILY 05/27/18 06/03/18 History Tumeric (Unknown) 1 tab PO DAILY 05/27/18 06/03/18 History Ascorbic Acid [Vitamin C] 1,000 mg PO DAILY 06/03/18 06/03/18 History Cholecalciferol [Vitamin D3] 1,000 unit PO DAILY 06/03/18 06/03/18 History Fexofenadine HCl [Thania Allergy] 180 mg PO DAILY 06/03/18 06/03/18 History Ibuprofen [Motrin Ib] 400 mg PO Q6H PRN 06/03/18 06/03/18 History Allergies Allergy/AdvReac Type Severity Reaction Status Date / Time [place] And Derivatives Allergy Unknown Verified 06/03/18 08:43 [[place]] codeine Allergy Rapid Verified 06/03/18 08:43 Heart Rate Surgical - Exam Vital Signs Temp Pulse Resp BP Pulse Ox 97.8 F 78 18 136/91 97 06/03/18 01:00 06/03/18 01:00 06/03/18 01:00 06/03/18 01:00 06/03/18 01:00 Physical exam: General: Well-developed, well-nourished HEENT: Normocephalic, sclerae nonicteric Abdomen: Mild distention, mild diffuse tenderness, suspected incarcerated hernia at umbilicus Extremities: No edema Neuro: Alert and oriented Results - Labs 06/03/18 01:39 06/03/18 01:39 Abnormal Lab Results - Last 24 Hours (Table) 06/03/18 06/03/18 06/03/18 Range/Units 01:39 01:39 13:40 WBC 11.7 H (3.8-10.6) k/uL Neutrophils # 8.4 H (1.3-7.7) k/uL Monocytes # 1.1 H (0-1.0) k/uL Chloride 94 L (98-107) mmol/L BUN 18 H (7-17) mg/dL Creatinine 0.49 L (0.52-1.04) mg/dL Glucose 116 H (74-99) mg/dL Total Bilirubin 1.7 H (0.2-1.3) mg/dL AST 37 H (14-36) U/L Lipase 305 H (23-300) U/L Urine Protein Trace H (Negative) Urine Ketones 3+ H (Negative) Urine Blood Trace H (Negative) Urine Bilirubin 1+ H (Negative) Urine Mucus Rare H (None) /hpf Diabetes panel 06/03/18 Range/Units 01:39 Sodium 137 (137-145) mmol/L Potassium 3.7 (3.5-5.1) mmol/L Chloride 94 L (98-107) mmol/L Carbon Dioxide 26 (22-30) mmol/L BUN 18 H (7-17) mg/dL Creatinine 0.49 L (0.52-1.04) mg/dL Glucose 116 H (74-99) mg/dL Calcium 9.3 (8.4-10.2) mg/dL AST 37 H (14-36) U/L ALT 52 (9-52) U/L Alkaline Phosphatase 88 (38-126) U/L Total Protein 6.9 (6.3-8.2) g/dL Albumin 3.9 (3.5-5.0) g/dL Calcium panel 06/03/18 Range/Units 01:39 Calcium 9.3 (8.4-10.2) mg/dL Albumin 3.9 (3.5-5.0) g/dL Pituitary panel 06/03/18 Range/Units 01:39 Sodium 137 (137-145) mmol/L Potassium 3.7 (3.5-5.1) mmol/L Chloride 94 L (98-107) mmol/L Carbon Dioxide 26 (22-30) mmol/L BUN 18 H (7-17) mg/dL Creatinine 0.49 L (0.52-1.04) mg/dL Glucose 116 H (74-99) mg/dL Calcium 9.3 (8.4-10.2) mg/dL Adrenal panel 06/03/18 Range/Units 01:39 Sodium 137 (137-145) mmol/L Potassium 3.7 (3.5-5.1) mmol/L Chloride 94 L (98-107) mmol/L Carbon Dioxide 26 (22-30) mmol/L BUN 18 H (7-17) mg/dL Creatinine 0.49 L (0.52-1.04) mg/dL Glucose 116 H (74-99) mg/dL Calcium 9.3 (8.4-10.2) mg/dL Total Bilirubin 1.7 H (0.2-1.3) mg/dL AST 37 H (14-36) U/L ALT 52 (9-52) U/L Alkaline Phosphatase 88 (38-126) U/L Total Protein 6.9 (6.3-8.2) g/dL Albumin 3.9 (3.5-5.0) g/dL Assessment and Plan (1) Small bowel obstruction Narrative/Plan: Continue nothing by mouth. We'll check CT abdomen and pelvis at this time. Further decisions regarding surgical intervention will be based on the findings. Continue GI and DVT prophylaxis. Appreciated medical consult. Current Visit: Yes Status: Acute Code(s): K56.609 - UNSP INTESTNL OBST, UNSP TO PARTIAL VERSUS COMPLETE OBST SNOMED Code(s): 643454154
[2018-06-03] MEDS: IOPAMIDOL-300 CONTRAST 30 ML VIAL (ORAL USE) PO PRN ×2 (20:02→20:58)
[2018-06-03] MEDS: HEPARIN SODIUM,PORCINE 5,000 UNIT/ML 1 ML VIAL SQ SCH (21:00)
--- NOTE | 2018-06-03 22:22 | CT ---
EXAMINATION TYPE: CT abdomen pelvis w con DATE OF EXAM: 06/03/2018 COMPARISON: None HISTORY: vomiting, no bowel movements CT DLP: 1821 mGycm Automated exposure control for dose reduction was used. TECHNIQUE: Helical acquisition of images was performed from the lung bases through the pelvis. CONTRAST: Performed with Oral Contrast and with IV Contrast, patient injected with 100 mL of Isovue 300. FINDINGS: Lung bases are clear. There is no pleural effusion. Heart size is normal. There is no pericardial eff usion. Stomach appears normal. Spleen liver appear normal. There are clips from cholecystectomy. Bile ducts are not dilated. There is no evidence of pancreatic mass. There is no adrenal mass. Kidneys show sati sfactory contrast opacification. There is no hydronephrosis. There is no retroperitoneal adenopathy. There is some free fluid in the pelvis. Bladder distends smoothly. Uterus is anteverted. There is no inguinal hernia. There are numerous dilated loops of fluid-filled small bowel. There is incarcerated ventral hernia on the right side. This appears to be an umbilical or paraumbilical hernia. This is the transition poin t. Small bowel is dilated up to 4 cm. There is no mesenteric adenopathy. The large bowel is mostly em pty. There are a few sigmoid diverticula. There is no sign of diverticulitis. Lumbar spine is intact. Bony pelvis is intact. Appendix appears normal. IMPRESSION: HIGH-GRADE MECHANICAL OBSTRUCTION OF THE DISTAL SMALL BOWEL DUE TO INCARCERATED UMBILICAL HERNIA.
[2018-06-04] MEDS: ONDANSETRON 4 MG/2 ML VIAL IVP PRN ×2 (00:24→12:07)
[2018-06-04] MEDS: MORPHINE SULFATE 4 MG/ML SYRINGE IV PRN ×2 (02:43→06:09)
[2018-06-04 07:37] LABS: Basophils % (A) 0 %; Eosinophils % (A) 1 %; HCT 37.3 % (34.0-46.0); HGB 12.1 gm/dL (11.4-16.0); Lymphocytes # (A) 1.6 k/uL (1.0-4.8); Lymphocytes % (A) 19 %; MCH 29.1 pg (25.0-35.0); MCHC 32.5 g/dL (31.0-37.0); MCV 89.5 fL (80.0-100.0); Mean Platelet Volume 7.3; Monocytes # (A) 0.7 k/uL (0-1.0); Monocytes % (A) 8 %; Neutrophils # (A) 5.7 k/uL (1.3-7.7); Neutrophils % (A) 70 %; Platelet Count 273 k/uL (150-450); RBC 4.17 m/uL (3.80-5.40); RDW 12.4 % (11.5-15.5); WBC 8.1 k/uL (3.8-10.6)
[2018-06-04] MEDS: PANTOPRAZOLE 40 MG TABLET PO SCH ×2 (07:45→17:46)
[2018-06-04] MEDS: HEPARIN SODIUM,PORCINE 5,000 UNIT/ML 1 ML VIAL SQ SCH ×3 (07:47→20:41)
[2018-06-04 08:00] LABS: ALT 181 U/L (9-52); AST 141 U/L (14-36); Albumin 3.1 g/dL (3.5-5.0); Alkaline Phosphatase 97 U/L (38-126); Anion Gap 6 mmol/L; Blood Urea Nitrogen 12 mg/dL (7-17); Calcium 8.5 mg/dL (8.4-10.2); Carbon Dioxide 34 mmol/L (22-30); Chloride 99 mmol/L (98-107); Glucose 124 mg/dL (74-99); Potassium 3.9 mmol/L (3.5-5.1); Sodium 139 mmol/L (137-145); Total Bilirubin 2.3 mg/dL (0.2-1.3); Total Protein 5.8 g/dL (6.3-8.2)
[2018-06-04] MEDS: PIPERACILLIN-TAZOBACTAM 3.375 GM in SODIUM CHLORIDE 0.9% 100 ML IVPB SCH ×3 (08:57→23:55)
[2018-06-04] MEDS ORDERED: OXYMETAZOLINE 0.05% NASL SPRAY 1 SPRAY BOTTLE EA NOSTRIL ONE (09:20)
[2018-06-04] MEDS ORDERED: IV FLUID CONTINUATION 1,000 ML IV ONE (09:26)
--- NOTE | 2018-06-04 09:31 | P.PN ---
Subjective Progress Note Date: 06/04/18 Principal diagnosis: Intractable vomiting Patient had her CAT scan performed last night. CAT scan was reviewed and reveals evidence of small bowel obstruction related to an umbilical hernia. Patient says she had further vomiting last night. Still has no significant pain at the umbilicus itself. Vague diffuse abdominal discomforts however. Today's white blood cell count normal. Liver enzymes have increased somewhat. Objective - Vital Signs Vital signs: Vital Signs Temp 98.3 F 06/04/18 09:23 Pulse 80 06/04/18 09:23 Resp 16 06/04/18 09:23 BP 139/69 06/04/18 09:23 Pulse Ox 93 L 06/04/18 09:23 Intake & Output 06/03/18 06/04/18 06/04/18 18:59 06:59 18:59 Intake Total 525 600 Balance 525 600 Weight 108.862 kg Intake: IV 525 600 Dextrose 5%-0.9% NaCl 1, 525 600 000 ml @ 75 mls/hr IV . [id number] [facility] Rx#:[id number] Oral 0 Other: Voiding Method Toilet # Voids 1 - Exam Abdomen: Soft, mild distention, subtle fullness at umbilicus minimally tender - Labs CBC & Chem 7: 06/04/18 07:13 06/04/18 07:13 Labs: Abnormal Lab Results - Last 24 Hours (Table) 06/03/18 06/04/18 Range/Units 13:40 07:13 Carbon Dioxide 34 H (22-30) mmol/L Glucose 124 H (74-99) mg/dL Total Bilirubin 2.3 H (0.2-1.3) mg/dL AST 141 H (14-36) U/L ALT 181 H (9-52) U/L Total Protein 5.8 L (6.3-8.2) g/dL Albumin 3.1 L (3.5-5.0) g/dL Urine Protein Trace H (Negative) Urine Ketones 3+ H (Negative) Urine Blood Trace H (Negative) Urine Bilirubin 1+ H (Negative) Urine Mucus Rare H (None) /hpf Assessment and Plan (1) Small bowel obstruction Narrative/Plan: Patient with incarcerated umbilical hernia creating small bowel obstruction. Will proceed with umbilical herniorrhaphy with possible bowel resection, possible mesh. Risks of bleeding, infection, recurrence, persistent obstruction , potential need for bowel resection, anastomotic leak, potentially for drain placement, potential need for extending the fascial incision. Patient understands and wishes to proceed. Current Visit: Yes Status: Acute Code(s): K56.609 - UNSP INTESTNL OBST, UNSP TO PARTIAL VERSUS COMPLETE OBST SNOMED Code(s): 719134232
--- NOTE | 2018-06-04 10:20 | P.PN ---
Subjective This is a pleasant 48 years old female with past medical history of migraine. She was recently discharged from hospital for nausea/vomiting and coffee-ground emesis of 2 days' duration. She had EGD showing small helical hernias and mild gastritis. Also that time she complained from constipation and abdominal distention and she was treated with laxatives. Patient this time presents with recurrent nausea and vomiting 10-30 times per day for the last week associated with abdominal distention and periumbilical discomfort and pain. Also she complains from constipation for one week. In the emergency room her abdominal x-ray showing dilated small bowel consistent with high-grade mechanical small bowel obstruction. On admission her Vitas looks stable. Mild leukocytosis of 16.4, down to 11.7 K. Creatinine 0.4 and electrolytes within normal limits. Total bilirubin is mildly elevated at 1.7 as well as AST 37, however LT a note contrast is within normal limits. Lipase 305. In the emergency room patient of Zofran and IV fluids, she was started on pain management morphine.. I started the patient on D5 normal saline at 75 mL/h Patient states that currently she is menstruating. 05/27/2018 Patient has less abdominal pain this morning and treated as 2/10 in severity but that's with morphine therapy, no rebound tenderness on abdominal examination. Patient vomited once last time but doesn't feel nauseated this morning. Patient has normal bowel movement or flatus. Surgical follow up with the patient and recommended CAT scan of the abdomen which shows bowel obstruction related to her umbilical hernia. Surgical team are planning for herniorrhaphy and possible bowel resection. Objective - Vital Signs Vital signs: Vital Signs Temp 98.3 F 06/04/18 09:23 Pulse 80 06/04/18 09:23 Resp 16 06/04/18 09:23 BP 139/69 06/04/18 09:23 Pulse Ox 93 L 06/04/18 09:23 Intake & Output 06/03/18 06/04/18 06/04/18 18:59 06:59 18:59 Intake Total 525 600 Balance 525 600 Weight 108.862 kg Intake: IV 525 600 Dextrose 5%-0.9% NaCl 1, 525 600 000 ml @ 75 mls/hr IV . [id number] [facility] Rx#:[id number] Oral 0 Other: Voiding Method Toilet Toilet # Voids 1 - Exam GENERAL: The patient is alert and oriented x3, not in any acute distress. Well developed, well nourished. HEENT: Pupils are round and equally reacting to light. EOMI. No scleral icterus. No conjunctival pallor. Normocephalic, atraumatic. No pharyngeal erythema. No thyromegaly. CARDIOVASCULAR: S1 and S2 present. No murmurs, rubs, or gallops. PULMONARY: Chest is clear to auscultation, no wheezing or crackles. -ABDOMEN: Soft, distended, periumbilical tenderness with no rebound tenderness, normoactive bowel sounds. No palpable organomegaly. MUSCULOSKELETAL: No joint swelling or deformity. EXTREMITIES: No cyanosis, clubbing, or pedal edema. NEUROLOGICAL: Gross neurological examination did not reveal any focal deficits. SKIN: No rashes. - Labs CBC & Chem 7: 06/04/18 07:13 06/04/18 07:13 Labs: Abnormal Lab Results - Last 24 Hours (Table) 06/03/18 06/04/18 Range/Units 13:40 07:13 Carbon Dioxide 34 H (22-30) mmol/L Glucose 124 H (74-99) mg/dL Total Bilirubin 2.3 H (0.2-1.3) mg/dL AST 141 H (14-36) U/L ALT 181 H (9-52) U/L Total Protein 5.8 L (6.3-8.2) g/dL Albumin 3.1 L (3.5-5.0) g/dL Urine Protein Trace H (Negative) Urine Ketones 3+ H (Negative) Urine Blood Trace H (Negative) Urine Bilirubin 1+ H (Negative) Urine Mucus Rare H (None) /hpf Assessment and Plan Assessment: Small bowel obstruction Recent history of abdominal distention and constipation. Recent EGD: Mild hiatal hernia and mild gastritis History of migraine Mild leukocytosis, mostly reactive and is improving Plan: This is a pleasant 48 years old female who presents with SBO. Continue with IV fluids, nothing by mouth and pain management. Further recommendations as per the primary surgical team. Treatment is going to be surgical as per primary team. Labs and medication were reviewed.. Continue same treatment. Continue with symptomatic treatment. Resume home medication. Monitor lytes and vitals. DVT and GI prophylaxis. Further recommendations of the clinical course of the patient DVT prophylaxis: Subcutaneous heparin GI Prophylaxis: Pepcid Prognosis is guarded Thank you for consulting us, please feel free to contact us for any further concerns, clarification or questions
[2018-06-04] MEDS ORDERED: fentaNYL (PF) 50 MCG/ML 2 ML AMP ONE (10:37)
[2018-06-04] MEDS ORDERED: GLYCOPYRROLATE 0.2 MG/ML 2 ML VIAL ONE (10:37)
[2018-06-04] MEDS ORDERED: LIDOCAINE 1% INJ 10MG/ML (20 ML MDV) ONE (10:37)
[2018-06-04] MEDS ORDERED: MIDAZOLAM 2 MG/2 ML VIAL ONE (10:37)
[2018-06-04] MEDS ORDERED: MORPHINE SULFATE 10 MG/ML SYRINGE ONE (10:37)
[2018-06-04] MEDS ORDERED: PROPOFOL 10 MG/ML 20 ML VIAL IV ONE (10:37)
[2018-06-04] MEDS ORDERED: ROCURONIUM BROMIDE 10 MG/ML 10 ML VIAL IV ONE (10:37)
[2018-06-04] MEDS ORDERED: SUCCINYLCHOLINE CHLORIDE 100 MG/5 ML SYR IV ONE (10:37)
[2018-06-04] MEDS ORDERED: NEOSTIGMINE 1 MG/ML 10 ML VIAL ONE (10:37)
[2018-06-04] MEDS ORDERED: LACTATED RINGERS 1,000 ML IV ONE (10:57)
--- NOTE | 2018-06-04 11:40 | P.OP ---
Date of Procedure: 06/04/18 Procedure(s) Performed: PREOPERATIVE DIAGNOSIS: Incarcerated umbilical hernia causing small bowel obstruction POSTOPERATIVE DIAGNOSIS: Same PROCEDURE: Umbilical herniorrhaphy with reduction small bowel SURGEON: Kenisha EBL: Minimal ANESTHESIA: General COMPLICATIONS: None OPERATIVE PROCEDURE: The patient was placed in the operating table in the supine position. A periumbilical incision was made using the scalpel. The subcutaneous tissues were dissected bluntly. The hernia sac was identified. The umbilical attachments to the fascia were divided using electrocautery. The hernia sac was excised. The small loop of small intestine present within the hernia sac was viable. This was loosely adherent to the hernia sac was able to be lysed using the tip of the index finger. This was able to be then reduced back into the peritoneal cavity. I allowed the bowel to remain within the peritoneal cavity for several minutes and then brought it back out through the defect and reinspected. There was no evidence of an any ischemic changes. The fluid within the hernia sac however was somewhat cloudy. I chose not to place a mesh given the concern for possible infection. Primary repair then took place. The hernia sac was sent to pathology. The defect was closed using interrupted [id number] 0 Ethibond sutures. The subcutaneous tissues were reapproximated using inverted 3-0 Vicryl sutures. The umbilicus was tacked back down to the fascia using a 3-0 Vicryl suture. The skin was closed using donna. Steri-Strips and sterile dressings were then applied. DISPOSITION: Stable to recovery room
[2018-06-04] MEDS: KETOROLAC 30 MG/ML 1 ML VIAL IVP SCH ×2 (12:00→17:46)
[2018-06-04] MEDS: MORPHINE SULF 5MG/10ML VL IVP ONE ×2 (12:08→12:38)
[2018-06-04] MEDS: DEXTROSE 5%-0.9% NACL 1,000 ML IV SCH (23:48)
[2018-06-05] MEDS: KETOROLAC 30 MG/ML 1 ML VIAL IVP SCH ×4 (05:14→17:24)
[2018-06-05 08:11] LABS: Basophils % (A) 0 %; Eosinophils # (A) 0.1 k/uL (0-0.7); Eosinophils % (A) 2 %; HCT 32.1 % (34.0-46.0); HGB 10.3 gm/dL (11.4-16.0); Lymphocytes # (A) 1.7 k/uL (1.0-4.8); Lymphocytes % (A) 28 %; MCH 28.9 pg (25.0-35.0); MCV 90.2 fL (80.0-100.0); Mean Platelet Volume 7.1; Monocytes # (A) 0.4 k/uL (0-1.0); Monocytes % (A) 6 %; Neutrophils # (A) 3.9 k/uL (1.3-7.7); Neutrophils % (A) 62 %; Platelet Count 249 k/uL (150-450); RBC 3.56 m/uL (3.80-5.40); RDW 12.4 % (11.5-15.5); WBC 6.2 k/uL (3.8-10.6)
[2018-06-05 08:27] LABS: ALT 147 U/L (9-52); AST 50 U/L (14-36); Albumin 2.5 g/dL (3.5-5.0); Alkaline Phosphatase 85 U/L (38-126); Anion Gap 6 mmol/L; Blood Urea Nitrogen 13 mg/dL (7-17); Calcium 7.8 mg/dL (8.4-10.2); Carbon Dioxide 28 mmol/L (22-30); Chloride 104 mmol/L (98-107); Glucose 121 mg/dL (74-99); Potassium 3.2 mmol/L (3.5-5.1); Sodium 138 mmol/L (137-145); Total Bilirubin 0.7 mg/dL (0.2-1.3); Total Protein 4.9 g/dL (6.3-8.2)
[2018-06-05] MEDS: PANTOPRAZOLE 40 MG TABLET PO SCH ×2 (09:34→17:25)
[2018-06-05] MEDS: HEPARIN SODIUM,PORCINE 5,000 UNIT/ML 1 ML VIAL SQ SCH ×2 (09:34→21:35)
[2018-06-05] MEDS: PIPERACILLIN-TAZOBACTAM 3.375 GM in SODIUM CHLORIDE 0.9% 100 ML IVPB SCH ×3 (09:34→23:47)
[2018-06-05] MEDS ORDERED: POTASSIUM CHLORIDE 2 MEQ/ML 20 ML VIAL IVPB ONE (10:00)
--- NOTE | 2018-06-05 10:00 | P.PN ---
Subjective This is a pleasant 48 years old female with past medical history of migraine. She was recently discharged from hospital for nausea/vomiting and coffee-ground emesis of 2 days' duration. She had EGD showing small helical hernias and mild gastritis. Also that time she complained from constipation and abdominal distention and she was treated with laxatives. Patient this time presents with recurrent nausea and vomiting 10-30 times per day for the last week associated with abdominal distention and periumbilical discomfort and pain. Also she complains from constipation for one week. In the emergency room her abdominal x-ray showing dilated small bowel consistent with high-grade mechanical small bowel obstruction. On admission her Vitas looks stable. Mild leukocytosis of 16.4, down to 11.7 K. Creatinine 0.4 and electrolytes within normal limits. Total bilirubin is mildly elevated at 1.7 as well as AST 37, however LT a note contrast is within normal limits. Lipase 305. In the emergency room patient of Zofran and IV fluids, she was started on pain management morphine.. I started the patient on D5 normal saline at 75 mL/h Patient states that currently she is menstruating. 06/04/2018 Patient has less abdominal pain this morning and treated as 2/10 in severity but that's with morphine therapy, no rebound tenderness on abdominal examination. Patient vomited once last time but doesn't feel nauseated this morning. Patient has normal bowel movement or flatus. Surgical follow up with the patient and recommended CAT scan of the abdomen which shows bowel obstruction related to her umbilical hernia. Surgical team are planning for herniorrhaphy and possible bowel resection. 06/05/2018 Patient is status post herniorrhaphy with a small bowel reduction, hernial sac shows cloudy fluid which was sent for culture and patient was started on Zosyn. Patient today feels much better as and her abdominal pain almost resolved, the wound on the left side of the umbilicus is closed and healing with donna in place. No chest pain or dyspnea. Vitas looks stable. She has mild anemia at 10.3 which is expected after the surgery. Potassium 3.2 which is replaced. Liver enzymes are trending down Objective - Vital Signs Vital signs: Vital Signs Temp 98.8 F 06/05/18 05:00 Pulse 83 06/05/18 05:00 Resp 18 06/05/18 05:00 BP 94/54 06/05/18 05:00 Pulse Ox 94 L 06/05/18 05:00 Intake & Output 06/04/18 06/05/18 06/05/18 18:59 06:59 18:59 Intake Total 1075 1400 Output Total 20 Balance 1055 1400 Weight 108.862 kg Intake: IV 1075 1200 Dextrose 5%-0.9% NaCl 1, 1200 000 ml @ 75 mls/hr IV . [id number] [facility] Rx#:[id number] Intake, IV Titration 200 Amount Piperacillin-Tazobactam 3 200 .375 gm In Sodium Chloride 0.9% 100 ml @ 25 mls/hr IVPB Q8HR [facility] Rx# :[id number] Output: Estimated Blood Loss 20 Other: Voiding Method Toilet Toilet Toilet # Voids 2 3 # Bowel Movements 3 - Exam GENERAL: The patient is alert and oriented x3, not in any acute distress. Well developed, well nourished. HEENT: Pupils are round and equally reacting to light. EOMI. No scleral icterus. No conjunctival pallor. Normocephalic, atraumatic. No pharyngeal erythema. No thyromegaly. CARDIOVASCULAR: S1 and S2 present. No murmurs, rubs, or gallops. PULMONARY: Chest is clear to auscultation, no wheezing or crackles. -ABDOMEN: Soft, distended, periumbilical tenderness with no rebound tenderness, normoactive bowel sounds. No palpable organomegaly. MUSCULOSKELETAL: No joint swelling or deformity. EXTREMITIES: No cyanosis, clubbing, or pedal edema. NEUROLOGICAL: Gross neurological examination did not reveal any focal deficits. SKIN: No rashes. - Labs CBC & Chem 7: 06/05/18 07:28 06/05/18 07:28 Labs: Abnormal Lab Results - Last 24 Hours (Table) 06/05/18 06/05/18 Range/Units 07:28 07:28 RBC 3.56 L (3.80-5.40) m/uL Hgb 10.3 L (11.4-16.0) gm/dL Hct 32.1 L (34.0-46.0) % Potassium 3.2 L (3.5-5.1) mmol/L Glucose 121 H (74-99) mg/dL Calcium 7.8 L (8.4-10.2) mg/dL AST 50 H (14-36) U/L ALT 147 H (9-52) U/L Total Protein 4.9 L (6.3-8.2) g/dL Albumin 2.5 L (3.5-5.0) g/dL Assessment and Plan Assessment: Small bowel obstruction Recent history of abdominal distention and constipation. Recent EGD: Mild hiatal hernia and mild gastritis History of migraine Mild leukocytosis, mostly reactive and is improving Plan: This is a pleasant 48 years old female who presents with SBO. Continue with IV fluids, nothing by mouth and pain management. Further recommendations as per the primary surgical team. Treatment is going to be surgical as per primary team. Labs and medication were reviewed.. Continue same treatment. Continue with symptomatic treatment. Resume home medication. Monitor lytes and vitals. DVT and GI prophylaxis. Further recommendations of the clinical course of the patient DVT prophylaxis: Subcutaneous heparin GI Prophylaxis: Pepcid Prognosis is guarded Thank you for consulting us, please feel free to contact us for any further concerns, clarification or questions
[2018-06-05] MEDS ORDERED: SODIUM CHLORIDE 0.9% 500 ML 500 ML IV ONE (10:01)
[2018-06-05] MEDS: POTASSIUM CHLORIDE 10 MEQ in WATER FOR INJECTION 1 100ML.BAG IVPB SCH ×2 (11:35→13:19)
[2018-06-05] MEDS: MORPHINE SULFATE 4 MG/ML SYRINGE IV PRN ×2 (11:37→23:47)
--- NOTE | 2018-06-05 17:57 | P.PN ---
Subjective Progress Note Date: 06/05/18 CHIEF COMPLAINT: Status post umbilical hernia repair with bowel obstruction HISTORY OF PRESENT ILLNESS: The patient is a 48 year old female who is status post umbilical hernia repair for bowel obstruction, POD 1. She is passing flatus and having a bowel movement. "I am hungry." She is tolerating some liquids including ice chips and popsicles. PHYSICAL EXAM: VITAL SIGNS: Reviewed GENERAL: Well-developed in no acute distress. HEENT: No sclera icterus. Extraocular movements grossly intact. Moist buccal mucosa. Head is atraumatic, normocephalic. Hears conversational speech. No nasal drainage. NECK: Supple without lymphadenopathy. CHEST: Non-labored respirations and equal bilateral excursions. CARDIOVASCULAR: Regular rate with regular rhythm. ABDOMEN: Abdominal binder intact. Dressing and incisions intact. No peritonitis. No signs of infection MUSCULOSKELETAL: No clubbing, cyanosis or edema. NEUROLOGIC: No focal or lateralizing signs. Cranial nerves II through XII grossly intact. PSYCH: Alert and oriented to person, place and time. SKIN: Well perfused. Good skin turgor. LABS: Reviewed ASSESSMENT: 1. Incarcerated umbilical hernia status post repair with history of bowel obstruction PLAN: 1. Start clear liquid diet 2. DVT prophylaxis 3. Pulmonary toilet 4. Ambulation encouraged 4 times a day Objective - Vital Signs Vital signs: Vital Signs Temp 98.9 F 06/05/18 12:51 Pulse 78 06/05/18 12:51 Resp 16 06/05/18 12:51 BP 129/59 06/05/18 12:51 Pulse Ox 98 06/05/18 12:51 Intake & Output 06/04/18 06/05/18 06/05/18 18:59 06:59 18:59 Intake Total 1075 1400 Output Total 20 Balance 1055 1400 Weight 108.862 kg Intake: IV 1075 1200 Dextrose 5%-0.9% NaCl 1, 1200 000 ml @ 75 mls/hr IV . [id number] [facility] Rx#:[id number] Intake, IV Titration 200 Amount Piperacillin-Tazobactam 3 200 .375 gm In Sodium Chloride 0.9% 100 ml @ 25 mls/hr IVPB Q8HR [facility] Rx# :[id number] Output: Estimated Blood Loss 20 Other: Voiding Method Toilet Toilet Toilet # Voids 2 3 # Bowel Movements 3 - Labs CBC & Chem 7: 06/06/18 07:09 06/06/18 07:09 Labs: Abnormal Lab Results - Last 24 Hours (Table) 06/05/18 06/05/18 Range/Units 07:28 07:28 RBC 3.56 L (3.80-5.40) m/uL Hgb 10.3 L (11.4-16.0) gm/dL Hct 32.1 L (34.0-46.0) % Potassium 3.2 L (3.5-5.1) mmol/L Glucose 121 H (74-99) mg/dL Calcium 7.8 L (8.4-10.2) mg/dL AST 50 H (14-36) U/L ALT 147 H (9-52) U/L Total Protein 4.9 L (6.3-8.2) g/dL Albumin 2.5 L (3.5-5.0) g/dL Assessment and Plan (1) Umbilical hernia with obstruction Current Visit: Yes Status: Acute Code(s): K42.0 - UMBILICAL HERNIA WITH OBSTRUCTION, WITHOUT GANGRENE SNOMED Code(s): 835937977 (2) Morbid obesity due to excess calories Current Visit: Yes Status: Acute Code(s): E66.01 - MORBID (SEVERE) OBESITY DUE TO EXCESS CALORIES SNOMED Code(s): 341066706 (3) Morbid obesity with BMI of 40.0-44.9, adult Current Visit: Yes Status: Acute Code(s): E66.01 - MORBID (SEVERE) OBESITY DUE TO EXCESS CALORIES; Z68.41 - BODY MASS INDEX (BMI) 40.0-44.9, ADULT SNOMED Code(s): 888325173 (4) Abdominal pain Current Visit: Yes Status: Acute Code(s): R10.9 - UNSPECIFIED ABDOMINAL PAIN SNOMED Code(s): 35911379 (5) Small bowel obstruction Current Visit: Yes Status: Acute Code(s): K56.609 - UNSP INTESTNL OBST, UNSP TO PARTIAL VERSUS COMPLETE OBST SNOMED Code(s): 131344296 (6) Hematochezia Current Visit: No Status: Acute Code(s): K92.1 - MELENA SNOMED Code(s): 810807182
[2018-06-05] MEDS: DEXTROSE 5%-0.9% NACL 1,000 ML IV SCH (21:34)
[2018-06-06 08:27] LABS: Basophils % (A) 0 %; Eosinophils # (A) 0.1 k/uL (0-0.7); Eosinophils % (A) 3 %; HCT 31.3 % (34.0-46.0); HGB 10.1 gm/dL (11.4-16.0); Lymphocytes # (A) 1.9 k/uL (1.0-4.8); Lymphocytes % (A) 38 %; MCH 29.3 pg (25.0-35.0); MCHC 32.4 g/dL (31.0-37.0); MCV 90.4 fL (80.0-100.0); Mean Platelet Volume 7.1; Monocytes # (A) 0.3 k/uL (0-1.0); Monocytes % (A) 7 %; Neutrophils # (A) 2.6 k/uL (1.3-7.7); Neutrophils % (A) 51 %; Platelet Count 234 k/uL (150-450); RBC 3.46 m/uL (3.80-5.40); RDW 12.5 % (11.5-15.5)
[2018-06-06] MEDS: PANTOPRAZOLE 40 MG TABLET PO SCH (09:07)
[2018-06-06] MEDS: HEPARIN SODIUM,PORCINE 5,000 UNIT/ML 1 ML VIAL SQ SCH (09:07)
[2018-06-06] MEDS: PIPERACILLIN-TAZOBACTAM 3.375 GM in SODIUM CHLORIDE 0.9% 100 ML IVPB SCH (09:07)
[2018-06-06] MEDS: DEXTROSE 5%-0.9% NACL 1,000 ML IV SCH (09:14)
[2018-06-06] MEDS ORDERED: HYDROcodone/APAP 5-325MG 1 EACH TAB PO PRN (09:17)
[2018-06-06 09:22] LABS: ALT 112 U/L (9-52); AST 36 U/L (14-36); Albumin 2.5 g/dL (3.5-5.0); Alkaline Phosphatase 85 U/L (38-126); Anion Gap 6 mmol/L; Blood Urea Nitrogen 4 mg/dL (7-17); Calcium 7.7 mg/dL (8.4-10.2); Carbon Dioxide 26 mmol/L (22-30); Chloride 109 mmol/L (98-107); Glucose 105 mg/dL (74-99); Potassium 3.2 mmol/L (3.5-5.1); Sodium 141 mmol/L (137-145); Total Bilirubin 0.5 mg/dL (0.2-1.3); Total Protein 4.9 g/dL (6.3-8.2)
[2018-06-06] MEDS: IBUPROFEN 400 MG TAB PO PRN ×2 (10:09→15:39)
--- NOTE | 2018-06-06 11:14 | P.PN ---
Subjective This is a pleasant 48 years old female with past medical history of migraine. She was recently discharged from hospital for nausea/vomiting and coffee-ground emesis of 2 days' duration. She had EGD showing small helical hernias and mild gastritis. Also that time she complained from constipation and abdominal distention and she was treated with laxatives. Patient this time presents with recurrent nausea and vomiting 10-30 times per day for the last week associated with abdominal distention and periumbilical discomfort and pain. Also she complains from constipation for one week. In the emergency room her abdominal x-ray showing dilated small bowel consistent with high-grade mechanical small bowel obstruction. On admission her Vitas looks stable. Mild leukocytosis of 16.4, down to 11.7 K. Creatinine 0.4 and electrolytes within normal limits. Total bilirubin is mildly elevated at 1.7 as well as AST 37, however LT a note contrast is within normal limits. Lipase 305. In the emergency room patient of Zofran and IV fluids, she was started on pain management morphine.. I started the patient on D5 normal saline at 75 mL/h Patient states that currently she is menstruating. 06/04/2018 Patient has less abdominal pain this morning and treated as 2/10 in severity but that's with morphine therapy, no rebound tenderness on abdominal examination. Patient vomited once last time but doesn't feel nauseated this morning. Patient has normal bowel movement or flatus. Surgical follow up with the patient and recommended CAT scan of the abdomen which shows bowel obstruction related to her umbilical hernia. Surgical team are planning for herniorrhaphy and possible bowel resection. 06/05/2018 Patient is status post herniorrhaphy with a small bowel reduction, hernial sac shows cloudy fluid which was sent for culture and patient was started on Zosyn. Patient today feels much better as and her abdominal pain almost resolved, the wound on the left side of the umbilicus is closed and healing with donna in place. No chest pain or dyspnea. Vitas looks stable. She has mild anemia at 10.3 which is expected after the surgery. Potassium 3.2 which is replaced. Liver enzymes are trending down 06/06/2018 Patient still improving, she is status post herniorrhaphy postop day #2, diet is clear liquids and is tolerated, patient agrees to advance her diet. Her abdominal pain is [id number] at the surgical site and she feels better and is improved significantly. No nausea vomiting she still on Zosyn. Surgery team are following the patient. CBC looks his stable, potassium 3.2 and replaced. Liver enzymes going back to normal including bilirubin and AST, while ALT is trending down and today is 112 Objective - Vital Signs Vital signs: Vital Signs Temp 97.7 F 06/05/18 21:00 Pulse 72 06/06/18 00:00 Resp 16 06/06/18 00:00 BP 102/68 06/05/18 21:00 Pulse Ox 100 06/05/18 21:00 Intake & Output 06/05/18 06/06/18 06/06/18 18:59 06:59 18:59 Intake Total 900 1200 Balance 900 1200 Weight 108.862 kg Intake: IV 600 1200 Dextrose 5%-0.9% NaCl 1, 600 1200 000 ml @ 75 mls/hr IV . [id number] [facility] Rx#:[id number] Intake, IV Titration 300 Amount Piperacillin-Tazobactam 3 100 .375 gm In Sodium Chloride 0.9% 100 ml @ 25 mls/hr IVPB Q8HR [facility] Rx# :[id number] Potassium Chloride 10 meq 200 In Water For Injection 1 100ml.bag @ 100 mls/hr IVPB Q1HR [facility] Rx#: [id number] Other: Voiding Method Toilet Toilet # Voids 1 # Bowel Movements 1 - Exam GENERAL: The patient is alert and oriented x3, not in any acute distress. Well developed, well nourished. HEENT: Pupils are round and equally reacting to light. EOMI. No scleral icterus. No conjunctival pallor. Normocephalic, atraumatic. No pharyngeal erythema. No thyromegaly. CARDIOVASCULAR: S1 and S2 present. No murmurs, rubs, or gallops. PULMONARY: Chest is clear to auscultation, no wheezing or crackles. -ABDOMEN: Soft, distended, periumbilical tenderness with no rebound tenderness, normoactive bowel sounds. No palpable organomegaly. MUSCULOSKELETAL: No joint swelling or deformity. EXTREMITIES: No cyanosis, clubbing, or pedal edema. NEUROLOGICAL: Gross neurological examination did not reveal any focal deficits. SKIN: No rashes. - Labs CBC & Chem 7: 06/06/18 07:09 06/06/18 07:09 Labs: Abnormal Lab Results - Last 24 Hours (Table) 06/05/18 06/05/18 Range/Units 07:28 07:28 RBC 3.56 L (3.80-5.40) m/uL Hgb 10.3 L (11.4-16.0) gm/dL Hct 32.1 L (34.0-46.0) % Potassium 3.2 L (3.5-5.1) mmol/L Glucose 121 H (74-99) mg/dL Calcium 7.8 L (8.4-10.2) mg/dL AST 50 H (14-36) U/L ALT 147 H (9-52) U/L Total Protein 4.9 L (6.3-8.2) g/dL Albumin 2.5 L (3.5-5.0) g/dL Assessment and Plan Assessment: Small bowel obstruction Recent history of abdominal distention and constipation. Recent EGD: Mild hiatal hernia and mild gastritis History of migraine Mild leukocytosis, mostly reactive and is improving Plan: This is a pleasant 48 years old female who presents with SBO. Continue with IV fluids, nothing by mouth and pain management. Further recommendations as per the primary surgical team. Treatment is going to be surgical as per primary team. Labs and medication were reviewed.. Continue same treatment. Continue with symptomatic treatment. Resume home medication. Monitor lytes and vitals. DVT and GI prophylaxis. Further recommendations of the clinical course of the patient DVT prophylaxis: Subcutaneous heparin GI Prophylaxis: Pepcid Prognosis is guarded Thank you for consulting us, please feel free to contact us for any further concerns, clarification or questions
[2018-06-06] MEDS ORDERED: 0.9% NACL WITH KCL 40 MEQ/L 1,000 ML IV SCH (12:00)
[2018-06-06 12:26] VITALS: BP 175/72; PULSE 60; RESP 15; TEMP 97.1
[2018-06-06] MEDS: POTASSIUM CHLORIDE ER 20 MEQ TAB.ER PO SCH ×2 (13:37→14:44)
--- NOTE | 2018-06-06 14:22 | P.PN ---
Subjective Progress Note Date: 06/06/18 CHIEF COMPLAINT: Status post umbilical hernia repair with bowel obstruction HISTORY OF PRESENT ILLNESS: The patient is a 48 year old female who is status post umbilical hernia repair for bowel obstruction, POD 2. She tolerated regular diet. Family is at bedside. "I feel great.". She has been treated for low potassium. PHYSICAL EXAM: VITAL SIGNS: Reviewed GENERAL: Well-developed in no acute distress. HEENT: No sclera icterus. Extraocular movements grossly intact. Moist buccal mucosa. Head is atraumatic, normocephalic. Hears conversational speech. No nasal drainage. NECK: Supple without lymphadenopathy. CHEST: Non-labored respirations and equal bilateral excursions. CARDIOVASCULAR: Regular rate with regular rhythm. ABDOMEN: Abdominal binder intact. Dressing and incisions intact. No peritonitis. No signs of infection MUSCULOSKELETAL: No clubbing, cyanosis or edema. NEUROLOGIC: No focal or lateralizing signs. Cranial nerves II through XII grossly intact. PSYCH: Alert and oriented to person, place and time. SKIN: Well perfused. Good skin turgor. LABS: Reviewed ASSESSMENT: 1. Incarcerated umbilical hernia status post repair with history of bowel obstruction PLAN: 1. She is tolerating regular diet and will be discharged home. 2. Potassium rich diet including tomatoes and potatoes described. 3. Discharge instructions reviewed. Objective - Vital Signs Vital signs: Vital Signs Temp 97.1 F L 06/06/18 12:25 Pulse 60 06/06/18 12:25 Resp 15 06/06/18 12:25 BP 175/72 06/06/18 12:25 Pulse Ox 100 06/06/18 12:25 Intake & Output 06/05/18 06/06/18 06/06/18 18:59 06:59 18:59 Intake Total 900 1200 Balance 900 1200 Weight 108.862 kg Intake: IV 600 1200 Dextrose 5%-0.9% NaCl 1, 600 1200 000 ml @ 75 mls/hr IV . [id number] [facility] Rx#:[id number] Intake, IV Titration 300 Amount Piperacillin-Tazobactam 3 100 .375 gm In Sodium Chloride 0.9% 100 ml @ 25 mls/hr IVPB Q8HR [facility] Rx# :[id number] Potassium Chloride 10 meq 200 In Water For Injection 1 100ml.bag @ 100 mls/hr IVPB Q1HR [facility] Rx#: [id number] Other: Voiding Method Toilet Toilet Toilet # Voids 1 # Bowel Movements 1 - Labs CBC & Chem 7: 06/06/18 07:09 06/06/18 07:09 Labs: Abnormal Lab Results - Last 24 Hours (Table) 06/06/18 06/06/18 Range/Units 07:09 07:09 RBC 3.46 L (3.80-5.40) m/uL Hgb 10.1 L (11.4-16.0) gm/dL Hct 31.3 L (34.0-46.0) % Potassium 3.2 L (3.5-5.1) mmol/L Chloride 109 H (98-107) mmol/L BUN 4 L (7-17) mg/dL Creatinine 0.48 L (0.52-1.04) mg/dL Glucose 105 H (74-99) mg/dL Calcium 7.7 L (8.4-10.2) mg/dL ALT 112 H (9-52) U/L Total Protein 4.9 L (6.3-8.2) g/dL Albumin 2.5 L (3.5-5.0) g/dL Assessment and Plan (1) Umbilical hernia with obstruction Current Visit: Yes Status: Acute Code(s): K42.0 - UMBILICAL HERNIA WITH OBSTRUCTION, WITHOUT GANGRENE SNOMED Code(s): 170418551 (2) Morbid obesity due to excess calories Current Visit: Yes Status: Acute Code(s): E66.01 - MORBID (SEVERE) OBESITY DUE TO EXCESS CALORIES SNOMED Code(s): 360013164 (3) Morbid obesity with BMI of 40.0-44.9, adult Current Visit: Yes Status: Acute Code(s): E66.01 - MORBID (SEVERE) OBESITY DUE TO EXCESS CALORIES; Z68.41 - BODY MASS INDEX (BMI) 40.0-44.9, ADULT SNOMED Code(s): 842431260 (4) Abdominal pain Current Visit: Yes Status: Acute Code(s): R10.9 - UNSPECIFIED ABDOMINAL PAIN SNOMED Code(s): 30176517 (5) Small bowel obstruction Current Visit: Yes Status: Acute Code(s): K56.609 - UNSP INTESTNL OBST, UNSP TO PARTIAL VERSUS COMPLETE OBST SNOMED Code(s): 764486119 (6) Hematochezia Current Visit: No Status: Acute Code(s): K92.1 - MELENA SNOMED Code(s): 766461952
--- NOTE | 2018-06-06 14:23 | P.DS ---
Providers Date of admission: 06/03/18 06:08 Expected date of discharge: 06/06/18 Attending physician: Jin De Consults: 06/03/18 06:09 Consult Physician Routine Consulting Provider: Basil Granger Reason/Comments: medical consult Do you want consulting provider notified?: Yes Primary care physician: Stated None - Discharge Diagnosis(es) (1) Umbilical hernia with obstruction Current Visit: Yes Status: Acute (2) Morbid obesity due to excess calories Current Visit: Yes Status: Acute (3) Morbid obesity with BMI of 40.0-44.9, adult Current Visit: Yes Status: Acute (4) Abdominal pain Current Visit: Yes Status: Acute (5) Small bowel obstruction Current Visit: Yes Status: Acute (6) Hematochezia Current Visit: No Status: Acute (7) Hypokalemia due to inadequate potassium intake Current Visit: Yes Status: Acute Hospital Course: CHIEF COMPLAINT: Status post umbilical hernia repair with bowel obstruction HISTORY OF PRESENT ILLNESS: The patient is a 48 year old female who is status post umbilical hernia repair for bowel obstruction, POD 2. She was admitted secondary to umbilical hernia with bowel obstruction. Post op, she did very well. She was tolerating diet. She was passing flatus. Discharge instructions were reviewed. PHYSICAL EXAM: VITAL SIGNS: Reviewed GENERAL: Well-developed in no acute distress. HEENT: No sclera icterus. Extraocular movements grossly intact. Moist buccal mucosa. Head is atraumatic, normocephalic. Hears conversational speech. No nasal drainage. NECK: Supple without lymphadenopathy. CHEST: Non-labored respirations and equal bilateral excursions. CARDIOVASCULAR: Regular rate with regular rhythm. ABDOMEN: Abdominal binder intact. Dressing and incisions intact. No peritonitis. No signs of infection MUSCULOSKELETAL: No clubbing, cyanosis or edema. NEUROLOGIC: No focal or lateralizing signs. Cranial nerves II through XII grossly intact. PSYCH: Alert and oriented to person, place and time. SKIN: Well perfused. Good skin turgor. LABS: Reviewed ASSESSMENT: 1. Incarcerated umbilical hernia status post repair with history of bowel obstruction PLAN: 1. She is tolerating regular diet and will be discharged home. 2. Potassium rich diet including tomatoes and potatoes described. 3. Discharge instructions reviewed. Procedures: Umbilical hernia repair Patient Condition at Discharge: Stable Plan - Discharge Summary Discharge Rx Participant: Yes New Discharge Prescriptions: New Ibuprofen [Motrin] 600 mg PO Q8HR PRN #30 tab PRN Reason: Pain Continue Multivitamin,Therapeutic [Thera] 1 tab PO DAILY Calcium Carbonate [Calcium] 600 mg PO DAILY Fexofenadine HCl [Thania Allergy] 180 mg PO DAILY Cholecalciferol [Vitamin D3] 1,000 unit PO DAILY Ascorbic Acid [Vitamin C] 1,000 mg PO DAILY Ibuprofen [Motrin Ib] 400 mg PO Q6H PRN PRN Reason: Pain Discontinued Tumeric (Unknown) 1 tab PO DAILY Discharge Medication List Calcium Carbonate [Calcium] 600 mg PO DAILY 05/27/18 [History] Multivitamin,Therapeutic [Thera] 1 tab PO DAILY 05/27/18 [History] Ascorbic Acid [Vitamin C] 1,000 mg PO DAILY 06/03/18 [History] Cholecalciferol [Vitamin D3] 1,000 unit PO DAILY 06/03/18 [History] Fexofenadine HCl [Thania Allergy] 180 mg PO DAILY 06/03/18 [History] Ibuprofen [Motrin Ib] 400 mg PO Q6H PRN 06/03/18 [History] Ibuprofen [Motrin] 600 mg PO Q8HR PRN #30 tab 06/06/18 [Rx] Follow up Appointment(s)/Referral(s): Jin De MD [Medical Doctor] - 2 Weeks None,Stated [Primary Care Provider] - 1-2 days Patient Instructions/Handouts: Potassium Content of Foods List (DC), Hypokalemia (DC), Abdominal Binder (DC), Umbilical Hernia Repair (DC) Activity/Diet/Wound Care/Special Instructions: No lifting over 4 pounds 2 weeks. May shower. No bath tub soaks. Wear abdominal binder at all times except for showering. Discharge Disposition: HOME SELF-CARE
== END 2018-06-06 15:45 | disposition home or self-care (01) | DRG 354 ==
LOC: EC 00:45 → 3NMEDONC 06:08
PROVIDERS: ADMIT Surgery; ATTEND Surgery
PROC: 0WQF0ZZ Repair Abdominal Wall, Open Approach (ICD-10-PCS; principal; 2018-06-04 10:15)
DX: K42.0 Umbilical hernia with obstruction, without gangrene (principal); Z68.41 Body mass index [BMI] 40.0-44.9, adult; D64.9 Anemia, unspecified; D72.829 Elevated white blood cell count, unspecified; E66.01 Morbid (severe) obesity due to excess calories; E87.6 Hypokalemia; K29.70 Gastritis, unspecified, without bleeding; K44.9 Diaphragmatic hernia without obstruction or gangrene; G43.909 Migraine, unspecified, not intractable, without status migrainosus; R74.8 Abnormal levels of other serum enzymes; Z87.891 Personal history of nicotine dependence; Z79.899 Other long term (current) drug therapy; Z88.5 Allergy status to narcotic agent; Z91.018 Allergy to other foods; Z80.9 Family history of malignant neoplasm, unspecified; Z82.49 Family history of ischemic heart disease and other diseases of the circulatory system
CPT/HCPCS: 36415; 74018; 74177; 80053; 81001; 81025; 82150; 83690; 83735; 84703; 85025; 88302; 96361; 96374; 99285